=== PATIENT | female | born 1965 | race Caucasian/White ===

== ENCOUNTER 2024-11-12 21:02 | Inpatient (IN) | payer MEDICARE, SELFPAY ==
[2024-11-12 20:00] VITALS: BP 82/51; PULSE 78; RESP 20; TEMP 36.8; O2SAT 95
[2024-11-13] MEDS: hydrOXYzine HCL 25 MG TABLET PO (00:20)
[2024-11-13] MEDS: traZODone HCL 50 MG TABLET PO (00:20)
[2024-11-13] MEDS: OLANZapine 5 MG TABLET PO (00:20)
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
--- NOTE | 2024-11-13 07:14 | HE.PHANOTE ---
METHADONE CONFIRMATION FORM RECEIVED PATIENT TAKES 85MG FROM [facility]. LAST DOSE ON 11/12 @ 0010
[2024-11-13 08:00] VITALS: BP 104/54; PULSE 67; RESP 16; TEMP 36.9; O2SAT 97
--- NOTE | 2024-11-13 08:12 | PC.NURSE ---
This nurse verified methadone dose as 85mg [address] [facility], I spoke with [place] [facility]. Last dose received 11/08/24.
[2024-11-13 08:37] LABS: Estimated Average Glucose 91 mg/dL; Hemoglobin A1C 97.0887 umol/L; Hemoglobin A1c % 4.8 % (<6.0); Total Hemoglobin (HGBA1C) 3362.1232 umol/L
[2024-11-13 08:59] LABS: Cholesterol 155 mg/dL (<200); HDL Cholesterol 61 mg/dL (>40); LDL Cholesterol Calculated 63 mg/dL (<100); Triglycerides 157 mg/dL (<150)
[2024-11-13] MEDS: methADONE HCl 20 MG/2 ML ORAL.CONC 80 MG PO (10:15)
[2024-11-13] MEDS: Gabapentin 400 MG CAPSULE 800 MG PO ×4 (10:17→21:35)
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
[2024-11-13 14:42] LABS: Anion Gap 14 (12-20); Blood Urea Nitrogen 16 mg/dL (9-16); Calcium 8.6 mg/dL (8.4-10.2); Carbon Dioxide 20 mmol/L (22-29); Chloride 108 mmol/L (96-108); Estimated Glomerular Filt Rate > 60; Glucose Random 78 mg/dL (60-115); Potassium 3.9 mmol/L (3.3-5.1); Sodium 138 mmol/L (135-145)
[2024-11-13] MEDS: Cyclobenzaprine HCl 10 MG TABLET PO ×2 (14:50→17:12)
[2024-11-13] MEDS: Flu Vacc TS2024-25(6mos up)/PF 0.5 ML SYRINGE IM (14:54)
--- NOTE | 2024-11-13 16:38 | PC.NURSE ---
late entry 1200 patient's roommate sought staff as Hannah fell from bed to floor. Hannah is alert, annoyed that so many staff responded for the fall. She reported I slid off the bed onto my butt , denies any head strike. Encouraged to use walker regularly. Vitals 97.3, 88,18 Sat 98% BP 93/59
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
[2024-11-13 20:00] VITALS: BP 95/60; PULSE 84; TEMP 36.9; O2SAT 98
[2024-11-13] MEDS: QUEtiapine Fumarate 400 MG TABLET PO (21:35)
[2024-11-13] MEDS: OLANZapine 10 MG TABLET PO (21:35)
[2024-11-13 21:36] VITALS: BP 95/60
[2024-11-13] MEDS: cloNIDine HCL 0.1 MG TABLET PO (21:36)
[2024-11-14] MEDS: methADONE HCl 20 MG/2 ML ORAL.CONC 85 MG PO (07:55)
[2024-11-14 08:00] VITALS: BP 98/53; PULSE 66; RESP 20; TEMP 36.4; O2SAT 96
[2024-11-14] MEDS: Gabapentin 400 MG CAPSULE 800 MG PO ×4 (08:15→21:12)
--- NOTE | 2024-11-14 14:36 | P.PNPSI_ITS ---
Subjective Subjective Date of Service: 11/14/24 Reason For Visit: Bipolar Interim History: Laying in bed. guarded. reports feeling depressed d/t life in general . Pt reports sleeping well last night. denies SI/HI/VH/AH. Kept 1:1 brief; states she doesn't need anything and just wants to sleep . Medication Compliance: Yes Side effects from medications: No Mental Status Exam Mental Status Exam Patient Appearance: Disheveled Patient Orientation: Person, Place, Time and Situation Level of Consciousness: Drowsy Patient Behavior: Guarded and Poor Eye Contact Mood Description: Depressed Affect Description: Flat Ability to Follow Directions: Good Speech Pattern: Clear Memory Description: Intact Hallucinations: None Delusions: Not Present Thought Process: Intact Thought Content: positive for Intact Diagnostics Vital Signs (24Hr): Vital Signs - 24 hr 11/13/24 20:00 11/13/24 21:36 11/14/24 08:00 Temperature 98.4 F 97.6 F Pulse Rate 84 66 Respiratory Rate 20 Blood Pressure 95/60 95/60 98/53 L Pulse Oximetry 98 96 Oxygen Delivery Method Room Air Room Air Labs 11/13/24 08:06 Labs: Laboratory Results - last 48 hr 11/13/24 08:06 Sodium 138 Potassium 3.9 Chloride 108 Carbon Dioxide 20 L Anion Gap 14 BUN 16 Creatinine 0.94 Estim Creat Clear Calc TNP Estimated GFR > 60 Random Glucose 78 Estimat Average Glucose 91 Hemoglobin A1c % 4.8 Calcium 8.6 Triglycerides 157 H Cholesterol 155 LDL Cholesterol, Calc 63 HDL Cholesterol 61 TSH 3.30 Medications Medications Current Medications Acetaminophen (Acetaminophen 325 Mg Tablet) 650 mg PO Q6H PRN PRN Reason: Headache/Pain Mild Scale (1-3) Al Hydroxide/Mg Hydroxide (Magnesium Hydrox/Alum Hydrox 30 Ml Oral.Susp) 30 ml PO Q6H PRN PRN Reason: Heartburn/Nausea Clonidine HCl (Clonidine Hcl 0.1 Mg Tablet) 0.1 mg PO Q4H PRN; Protocol PRN Reason: mod anxiety Clonidine HCl (Clonidine Hcl 0.1 Mg Tablet) 0.1 mg PO BEDTIME [facility]INDA; Protocol Last Admin: 11/13/24 21:36 Dose: 0.1 mg Cyclobenzaprine HCl (Cyclobenzaprine Hcl 10 Mg Tablet) 10 mg PO TID PRN PRN Reason: Muscle Spasm Last Admin: 11/13/24 17:12 Dose: 10 mg Gabapentin (Gabapentin 400 Mg Capsule) 800 mg PO QID REPLACED BY [facility] Last Admin: 11/14/24 13:06 Dose: 800 mg Hydroxyzine HCl (Hydroxyzine Hcl 25 Mg Tablet) 25 mg PO Q6H PRN PRN Reason: Anxiety Last Admin: 11/13/24 00:20 Dose: 25 mg Magnesium Hydroxide (Milk Of Magnesia 30 Ml Oral.Susp) 30 ml PO DAILY PRN PRN Reason: Constipation Methadone HCl (Methadone Hcl 20 Mg/2 Ml Oral.Conc) 85 mg PO DAILY@0800 REPLACED BY [facility] Last Admin: 11/14/24 07:55 Dose: 85 mg Naloxone HCl (Naloxone Hcl Nasal 4 Mg [place]) 4 mg NOSTRILALT ONCE PRN PRN Reason: opiate od Nicotine Polacrilex (Nicotine Polacrilex 2 Mg Gum) 4 mg BUCCAL Q2H PRN PRN Reason: Nicotine Cravings Olanzapine (Olanzapine 5 Mg Tablet) 5 mg PO TID PRN PRN Reason: agitation Last Admin: 11/13/24 00:20 Dose: 5 mg Olanzapine (Olanzapine 10 Mg Tablet) 10 mg PO BEDTIME REPLACED BY [facility] Last Admin: 11/13/24 21:35 Dose: 10 mg Quetiapine Fumarate (Quetiapine Fumarate 400 Mg Tablet) 400 mg PO BEDTIME REPLACED BY [facility] Last Admin: 11/13/24 21:35 Dose: 400 mg Quetiapine Fumarate (Quetiapine Fumarate 50 Mg Tablet) 50 mg PO TID PRN PRN Reason: anxiety, agitation Trazodone HCl (Trazodone Hcl 50 Mg Tablet) 50 mg PO BEDTIME MRX1 PRN PRN Reason: Insomnia Last Admin: 11/13/24 00:20 Dose: 50 mg Allergies Allergies Allergy/AdvReac Type Severity Reaction Status Date / Time codeine Allergy unknown Verified 11/12/24 16:59 Assessment & Plan Assessment & Plan (1) Opioid use disorder: Status: Acute Code(s): F11.90 - Opioid use, unspecified, uncomplicated (2) Bipolar disorder: Status: Acute Code(s): F31.9 - Bipolar disorder, unspecified (3) Polysubstance use disorder: Status: Acute Code(s): F19.90 - Other psychoactive substance use, unspecified, uncomplicated Plan Bipolar Disorder, Polysubstance Use Disorder, Opiate Use Disorder. Hx of C-1, C- 2 spinal injury. Plan: Admit, Section XII, 15 minute checks Diagnostics as needed Collateral Contact Re-establish medicine regime Encourage full milieu Discharge planning 11/14: Laying in bed. guarded. reports feeling depressed d/t life in general . Pt reports sleeping well last night. denies SI/HI/VH/AH. Kept 1:1 brief; states she doesn't need anything and just wants to sleep . continue current tx plan. Patient educated on: diagnosis and medication risk/benefits Reason for continued inpatient stay Substantial Risk for: med/psych decompensation Time Spent With Patient Time: Total time managing care of this patient today _20___ minutes.
[2024-11-14 20:00] VITALS: BP 82/56; PULSE 82; TEMP 36.6; O2SAT 98
[2024-11-14] MEDS: OLANZapine 10 MG TABLET PO (21:12)
[2024-11-14 21:13] VITALS: BP 111/56
[2024-11-14] MEDS: cloNIDine HCL 0.1 MG TABLET PO (21:13)
[2024-11-14 21:20] VITALS: BP 111/56; PULSE 77; TEMP 36.9
[2024-11-14] MEDS: Acetaminophen 325 MG TABLET 650 MG PO (21:23)
[2024-11-14] MEDS: QUEtiapine Fumarate 400 MG TABLET PO (21:25)
[2024-11-15 08:00] VITALS: BP 88/52; PULSE 69; RESP 16; TEMP 36.4; O2SAT 96
[2024-11-15] MEDS: methADONE HCl 20 MG/2 ML ORAL.CONC 85 MG PO (08:01)
[2024-11-15] MEDS: Gabapentin 400 MG CAPSULE 800 MG PO ×4 (09:08→21:02)
[2024-11-15] MEDS: QUEtiapine Fumarate 50 MG TABLET PO (09:09)
[2024-11-15] MEDS: Cyclobenzaprine HCl 10 MG TABLET PO ×2 (09:09→14:55)
[2024-11-15] MEDS: Acetaminophen 325 MG TABLET 650 MG PO ×2 (09:09→15:00)
--- NOTE | 2024-11-15 09:54 | P.PNPSI_ITS ---
Subjective Subjective Date of Service: 11/15/24 Reason For Visit: Bipolar Interim History: met with patient; discussed with team; reviewed chart -Patient reports that she is feeling better than when she came in. Still depressed and would like to get on a medication that could help with depression; discussed options, risks/side effects and patient agreed to try Wellbutrin -discussed history of bipolar diagnosis however marketing underwriter can not solicit actual criteria to meet this diagnosis and it seems that patient just has flare upset only last hours or 1 or 2 days day at most; chronic history of consistent cocaine addiction making it difficult to further assess. -signed cv Mental Status Exam Mental Status Exam Narrative: Pt is alert and oriented; behavior is cooperative, calm, mostly keeping to herself; patient is not in distress; cachectic; dressed in casual attire, unkempt; mood is described as okay and affect congruent; eye contact appropriate; Speech is a little soft, a little slowed; some psychomotor retardation present; thought process is organized and goal directed; Thought content is on tx; otherwise pertinent to relevant topics and without any delusional content, paranoid ideations or grandiosity; denies any SI/HI. There is no evidence of perceptual disturbance. Patients insight and judgment impaired but improved and possibly close to baseline Diagnostics Vital Signs (24Hr): Vital Signs - 24 hr 11/14/24 20:00 11/14/24 21:13 11/14/24 21:20 Temperature 97.8 F 98.5 F Pulse Rate 82 77 Respiratory Rate Blood Pressure 82/56 L 111/56 L 111/56 L Pulse Oximetry 98 Oxygen Delivery Method Room Air 11/15/24 08:00 Temperature 97.5 F Pulse Rate 69 Respiratory Rate 16 Blood Pressure 88/52 L Pulse Oximetry 96 Oxygen Delivery Method Room Air Labs 11/13/24 08:06 Labs: Laboratory Results - last 48 hr 11/13/24 08:06 Sodium 138 Potassium 3.9 Chloride 108 Carbon Dioxide 20 L Anion Gap 14 BUN 16 Creatinine 0.94 Estim Creat Clear Calc TNP Estimated GFR > 60 Random Glucose 78 Calcium 8.6 Medications Medications Current Medications Acetaminophen (Acetaminophen 325 Mg Tablet) 650 mg PO Q6H PRN PRN Reason: Headache/Pain Mild Scale (1-3) Last Admin: 11/15/24 09:09 Dose: 650 mg Al Hydroxide/Mg Hydroxide (Magnesium Hydrox/Alum Hydrox 30 Ml Oral.Susp) 30 ml PO Q6H PRN PRN Reason: Heartburn/Nausea Clonidine HCl (Clonidine Hcl 0.1 Mg Tablet) 0.1 mg PO Q4H PRN; Protocol PRN Reason: mod anxiety Clonidine HCl (Clonidine Hcl 0.1 Mg Tablet) 0.1 mg PO BEDTIME [facility]; Protocol Last Admin: 11/14/24 21:13 Dose: 0.1 mg Cyclobenzaprine HCl (Cyclobenzaprine Hcl 10 Mg Tablet) 10 mg PO TID PRN PRN Reason: Muscle Spasm Last Admin: 11/15/24 09:09 Dose: 10 mg Gabapentin (Gabapentin 400 Mg Capsule) 800 mg PO QID [facility] Last Admin: 11/15/24 09:08 Dose: 800 mg Hydroxyzine HCl (Hydroxyzine Hcl 25 Mg Tablet) 25 mg PO Q6H PRN PRN Reason: Anxiety Last Admin: 11/13/24 00:20 Dose: 25 mg Magnesium Hydroxide (Milk Of Magnesia 30 Ml Oral.Susp) 30 ml PO DAILY PRN PRN Reason: Constipation Methadone HCl (Methadone Hcl 20 Mg/2 Ml Oral.Conc) 85 mg PO DAILY@0800 [facility] Last Admin: 11/15/24 08:01 Dose: 85 mg Naloxone HCl (Naloxone Hcl Nasal 4 Mg [place]) 4 mg NOSTRILALT ONCE PRN PRN Reason: opiate od Nicotine Polacrilex (Nicotine Polacrilex 2 Mg Gum) 4 mg BUCCAL Q2H PRN PRN Reason: Nicotine Cravings Olanzapine (Olanzapine 5 Mg Tablet) 5 mg PO TID PRN PRN Reason: agitation Last Admin: 11/13/24 00:20 Dose: 5 mg Olanzapine (Olanzapine 10 Mg Tablet) 10 mg PO BEDTIME [facility] Last Admin: 11/14/24 21:12 Dose: 10 mg Quetiapine Fumarate (Quetiapine Fumarate 400 Mg Tablet) 400 mg PO BEDTIME [facility] Last Admin: 11/14/24 21:25 Dose: 200 mg Quetiapine Fumarate (Quetiapine Fumarate 50 Mg Tablet) 50 mg PO TID PRN PRN Reason: anxiety, agitation Last Admin: 11/15/24 09:09 Dose: 50 mg Trazodone HCl (Trazodone Hcl 50 Mg Tablet) 50 mg PO BEDTIME MRX1 PRN PRN Reason: Insomnia Last Admin: 11/13/24 00:20 Dose: 50 mg Allergies Allergies Allergy/AdvReac Type Severity Reaction Status Date / Time codeine Allergy unknown Verified 11/12/24 16:59 Assessment & Plan Assessment & Plan (1) Opioid use disorder: Status: Acute Code(s): F11.90 - Opioid use, unspecified, uncomplicated (2) Bipolar disorder: Status: Acute Code(s): F31.9 - Bipolar disorder, unspecified (3) Polysubstance use disorder: Status: Acute Code(s): F19.90 - Other psychoactive substance use, unspecified, uncomplicated Plan History of depression, chronic severe polysubstance abuse; carries a diagnosis of bipolar disorder;opiate Use Disorder. Hx of C-1, C-2 spinal injury. Hospital course 11/14: Laying in bed. guarded. reports feeling depressed d/t life in general . Pt reports sleeping well last night. denies SI/HI/VH/AH. Kept 1:1 brief; states she doesn't need anything and just wants to sleep . continue current tx plan. 11/15 -Patient reports that she is feeling better than when she came in. Still depressed and would like to get on a medication that could help with depression; discussed options, risks/side effects and patient agreed to try Wellbutrin -discussed history of bipolar diagnosis however marketing underwriter can not solicit actual criteria to meet this diagnosis and it seems that patient just has flare upset only last hours or 1 or 2 days day at most; chronic history of consistent cocaine addiction making it difficult to further assess. -discussed behavioral activation and getting out of her room more, participate in the milieu to which she agreed -signed cv Plan: CV Start Wellbutrin XL 150 mg Collateral Contact Re-establish medicine regime Encourage full milieu Discharge planning Patient educated on: diagnosis, medication risk/benefits and therapeutic strategies Informed Consent: understands Reason for continued inpatient stay Substantial Risk for: rapid decompensation Time Spent With Patient Time: Total time managing care of this patient today ____ minutes.
[2024-11-15] MEDS: buPROPion HCl XL 150 MG TAB.ER.24H PO (15:02)
[2024-11-15 19:55] VITALS: BP 108/56; PULSE 65; TEMP 36.7; O2SAT 98
[2024-11-15 21:01] VITALS: BP 108/56
[2024-11-15] MEDS: QUEtiapine Fumarate 400 MG TABLET PO (21:01)
[2024-11-15] MEDS: cloNIDine HCL 0.1 MG TABLET PO (21:01)
[2024-11-15] MEDS: OLANZapine 10 MG TABLET PO (21:02)
[2024-11-16 08:00] VITALS: BP 98/54; PULSE 75; RESP 16; TEMP 36.7; O2SAT 99
--- NOTE | 2024-11-16 08:15 | HO.PSYCHPN ---
Subjective Subjective Date of Service: 11/16/24 Reason For Visit: Bipolar Interim History: met with patient; discussed with team; reviewed chart . Seen in room. Eating lunch. Noticeable bruising from falls. Reports that she still feels depressed, and intermittent hopelessness and thoughts of . No active SI. No side effect from Wellbutrin. No psychosis. Medication Compliance: Yes Side effects from medications: No Attending Groups: Intermittent Review of Systems Acute medical concerns: No Review of Systems Review of Systems Gait Disturbance, uses a walker. Mental Status Exam Mental Status Exam Narrative: Pt is alert and oriented; In room, eating lunch, behavior is cooperative, calm, mostly keeping to herself; patient is not in distress; cachectic; dressed in casual attire, unkempt; mood is described as okay and affect congruent; eye contact appropriate; Speech is a little soft, a little slowed; some psychomotor retardation present; thought process is organized and goal directed; Thought content is on tx; otherwise pertinent to relevant topics and without any delusional content, paranoid ideations or grandiosity; denies any SI/HI , but does endorse passive thoughts of . There is no evidence of perceptual disturbance. Patients insight and judgment impaired but improved and possibly close to baseline Diagnostics Vital Signs (24Hr): Vital Signs - 24 hr 11/15/24 19:55 11/15/24 21:01 Temperature 98.0 F Pulse Rate 65 Blood Pressure 108/56 L 108/56 L Pulse Oximetry 98 Oxygen Delivery Method Room Air Labs 11/13/24 08:06 Medications Medications Current Medications Acetaminophen (Acetaminophen 325 Mg Tablet) 650 mg PO Q6H PRN PRN Reason: Headache/Pain Mild Scale (1-3) Last Admin: 11/15/24 15:00 Dose: 650 mg Al Hydroxide/Mg Hydroxide (Magnesium Hydrox/Alum Hydrox 30 Ml Oral.Susp) 30 ml PO Q6H PRN PRN Reason: Heartburn/Nausea Bupropion HCl (Bupropion Hcl Xl 150 Mg Tab.Er.24h) 150 mg PO DAILY [facility]IN[facility] Last Admin: 11/15/24 15:02 Dose: 150 mg Clonidine HCl (Clonidine Hcl 0.1 Mg Tablet) 0.1 mg PO Q4H PRN; Protocol PRN Reason: mod anxiety Clonidine HCl (Clonidine Hcl 0.1 Mg Tablet) 0.1 mg PO BEDTIME [facility]; Protocol Last Admin: 11/15/24 21:01 Dose: 0.1 mg Cyclobenzaprine HCl (Cyclobenzaprine Hcl 10 Mg Tablet) 10 mg PO TID PRN PRN Reason: Muscle Spasm Last Admin: 11/15/24 14:55 Dose: 10 mg Gabapentin (Gabapentin 400 Mg Capsule) 800 mg PO QID [facility] Last Admin: 11/15/24 21:02 Dose: 800 mg Hydroxyzine HCl (Hydroxyzine Hcl 25 Mg Tablet) 25 mg PO Q6H PRN PRN Reason: Anxiety Last Admin: 11/13/24 00:20 Dose: 25 mg Magnesium Hydroxide (Milk Of Magnesia 30 Ml Oral.Susp) 30 ml PO DAILY PRN PRN Reason: Constipation Methadone HCl (Methadone Hcl 20 Mg/2 Ml Oral.Conc) 85 mg PO DAILY@0800 [facility] Last Admin: 11/15/24 08:01 Dose: 85 mg Naloxone HCl (Naloxone Hcl Nasal 4 Mg [place]) 4 mg NOSTRILALT ONCE PRN PRN Reason: opiate od Nicotine Polacrilex (Nicotine Polacrilex 2 Mg Gum) 4 mg BUCCAL Q2H PRN PRN Reason: Nicotine Cravings Olanzapine (Olanzapine 5 Mg Tablet) 5 mg PO TID PRN PRN Reason: agitation Last Admin: 11/13/24 00:20 Dose: 5 mg Olanzapine (Olanzapine 10 Mg Tablet) 10 mg PO BEDTIME [facility] Last Admin: 11/15/24 21:02 Dose: 10 mg Quetiapine Fumarate (Quetiapine Fumarate 400 Mg Tablet) 400 mg PO BEDTIME [facility] Last Admin: 11/15/24 21:01 Dose: 400 mg Quetiapine Fumarate (Quetiapine Fumarate 50 Mg Tablet) 50 mg PO TID PRN PRN Reason: anxiety, agitation Last Admin: 11/15/24 09:09 Dose: 50 mg Trazodone HCl (Trazodone Hcl 50 Mg Tablet) 50 mg PO BEDTIME MRX1 PRN PRN Reason: Insomnia Last Admin: 11/13/24 00:20 Dose: 50 mg Allergies Allergies Allergy/AdvReac Type Severity Reaction Status Date / Time codeine Allergy unknown Verified 11/12/24 16:59 Assessment & Plan Assessment & Plan (1) Opioid use disorder: Status: Acute Code(s): F11.90 - Opioid use, unspecified, uncomplicated (2) Bipolar disorder: Status: Acute Code(s): F31.9 - Bipolar disorder, unspecified (3) Polysubstance use disorder: Status: Acute Code(s): F19.90 - Other psychoactive substance use, unspecified, uncomplicated Plan History of depression, chronic severe polysubstance abuse; carries a diagnosis of bipolar disorder;opiate Use Disorder. Hx of C-1, C-2 spinal injury. Hospital course 11/14: Laying in bed. guarded. reports feeling depressed d/t life in general . Pt reports sleeping well last night. denies SI/HI/VH/AH. Kept 1:1 brief; states she doesn't need anything and just wants to sleep . continue current tx plan. 11/15 -Patient reports that she is feeling better than when she came in. Still depressed and would like to get on a medication that could help with depression; discussed options, risks/side effects and patient agreed to try Wellbutrin -discussed history of bipolar diagnosis however contract technical writer can not solicit actual criteria to meet this diagnosis and it seems that patient just has flare upset only last hours or 1 or 2 days day at most; chronic history of consistent cocaine addiction making it difficult to further assess. -discussed behavioral activation and getting out of her room more, participate in the milieu to which she agreed -signed cv 11/16: no changes Plan: CV Start Wellbutrin XL 150 mg Collateral Contact Re-establish medicine regime Encourage full milieu Discharge planning Reason for continued inpatient stay Substantial Risk for: inability to function and rapid decompensation Time Spent With Patient Time: Total time managing care of this patient today ____ minutes.
[2024-11-16] MEDS: methADONE HCl 20 MG/2 ML ORAL.CONC 85 MG PO (08:16)
[2024-11-16] MEDS: Gabapentin 400 MG CAPSULE 800 MG PO ×4 (08:17→20:12)
[2024-11-16] MEDS: buPROPion HCl XL 150 MG TAB.ER.24H PO (08:17)
[2024-11-16 19:31] VITALS: BP 138/65; PULSE 96; TEMP 36.9; O2SAT 98
[2024-11-16] MEDS: traZODone HCL 50 MG TABLET PO (20:12)
[2024-11-16] MEDS: QUEtiapine Fumarate 400 MG TABLET PO (20:12)
[2024-11-16] MEDS: Cyclobenzaprine HCl 10 MG TABLET PO (20:12)
[2024-11-16] MEDS: cloNIDine HCL 0.1 MG TABLET PO (20:13)
[2024-11-16] MEDS: OLANZapine 10 MG TABLET PO (20:13)
[2024-11-16] MEDS: Acetaminophen 325 MG TABLET 650 MG PO (20:55)
[2024-11-17] MEDS: methADONE HCl 20 MG/2 ML ORAL.CONC 85 MG PO (07:52)
[2024-11-17 08:00] VITALS: BP 110/52; PULSE 71; RESP 16; TEMP 36.4; O2SAT 98
[2024-11-17] MEDS: Gabapentin 400 MG CAPSULE 800 MG PO ×4 (08:42→21:18)
[2024-11-17] MEDS: buPROPion HCl XL 150 MG TAB.ER.24H PO (08:42)
--- NOTE | 2024-11-17 11:21 | P.PNPSI_ITS ---
Subjective Subjective Date of Service: 11/17/24 Reason For Visit: Bipolar Subjective Notes: Section 12B Interim History: met with patient; discussed with team. Overall patient reports no significant changes I still depressed with intermittent hopelessness and thoughts of . Did note that she pulled her hair last night and to get a chunk. Did not report this was a form of self-harm. Reports she has not done that before. Did not feel agitated or more anxious. Overall will continue to monitor this along with recent med changes and make adjustments if needed. Otherwise, no active SI. No psychosis. Medication Compliance: Yes Side effects from medications: No Attending Groups: No Review of Systems Acute medical concerns: No Review of Systems Review of Systems nothing acute or new Mental Status Exam Mental Status Exam Narrative: Pt is alert and oriented; In room, behavior is cooperative, calm, mostly keeping to herself; patient is not in distress; cachectic; dressed in casual attire, unkempt; mood is described as okay still down and affect congruent; eye contact appropriate; Speech is a little soft, a little slowed; some psychomotor retardation present; thought process is organized and goal directed; Thought content is on tx; otherwise pertinent to relevant topics and without any delusional content, paranoid ideations or grandiosity; denies any SI/HI , but does endorse passive thoughts of . There is no evidence of perceptual disturbance. Patients insight and judgment impaired but improved and possibly close to baseline Diagnostics Vital Signs (24Hr): Vital Signs - 24 hr 11/16/24 19:31 11/17/24 08:00 Temperature 98.4 F 97.5 F Pulse Rate 96 71 Respiratory Rate 16 Blood Pressure 138/65 110/52 L Pulse Oximetry 98 98 Oxygen Delivery Method Room Air Room Air Labs 11/13/24 08:06 Medications Medications Current Medications Acetaminophen (Acetaminophen 325 Mg Tablet) 650 mg PO Q6H PRN PRN Reason: Headache/Pain Mild Scale (1-3) Last Admin: 11/16/24 20:55 Dose: 650 mg Al Hydroxide/Mg Hydroxide (Magnesium Hydrox/Alum Hydrox 30 Ml Oral.Susp) 30 ml PO Q6H PRN PRN Reason: Heartburn/Nausea Bupropion HCl (Bupropion Hcl Xl 150 Mg Tab.Er.24h) 150 mg PO DAILY [facility]INDA Last Admin: 11/17/24 08:42 Dose: 150 mg Clonidine HCl (Clonidine Hcl 0.1 Mg Tablet) 0.1 mg PO Q4H PRN; Protocol PRN Reason: mod anxiety Clonidine HCl (Clonidine Hcl 0.1 Mg Tablet) 0.1 mg PO BEDTIME [facility]; Protocol Last Admin: 11/16/24 20:13 Dose: 0.1 mg Cyclobenzaprine HCl (Cyclobenzaprine Hcl 10 Mg Tablet) 10 mg PO TID PRN PRN Reason: Muscle Spasm Last Admin: 11/16/24 20:12 Dose: 10 mg Gabapentin (Gabapentin 400 Mg Capsule) 800 mg PO QID [facility] Last Admin: 11/17/24 08:42 Dose: 800 mg Hydroxyzine HCl (Hydroxyzine Hcl 25 Mg Tablet) 25 mg PO Q6H PRN PRN Reason: Anxiety Last Admin: 11/13/24 00:20 Dose: 25 mg Magnesium Hydroxide (Milk Of Magnesia 30 Ml Oral.Susp) 30 ml PO DAILY PRN PRN Reason: Constipation Methadone HCl (Methadone Hcl 20 Mg/2 Ml Oral.Conc) 85 mg PO DAILY@0800 [facility] Last Admin: 11/17/24 07:52 Dose: 85 mg Naloxone HCl (Naloxone Hcl Nasal 4 Mg [place]) 4 mg NOSTRILALT ONCE PRN PRN Reason: opiate od Nicotine Polacrilex (Nicotine Polacrilex 2 Mg Gum) 4 mg BUCCAL Q2H PRN PRN Reason: Nicotine Cravings Olanzapine (Olanzapine 5 Mg Tablet) 5 mg PO TID PRN PRN Reason: agitation Last Admin: 11/13/24 00:20 Dose: 5 mg Olanzapine (Olanzapine 10 Mg Tablet) 10 mg PO BEDTIME [facility] Last Admin: 11/16/24 20:13 Dose: 10 mg Quetiapine Fumarate (Quetiapine Fumarate 400 Mg Tablet) 400 mg PO BEDTIME [facility] Last Admin: 11/16/24 20:12 Dose: 400 mg Quetiapine Fumarate (Quetiapine Fumarate 50 Mg Tablet) 50 mg PO TID PRN PRN Reason: anxiety, agitation Last Admin: 11/15/24 09:09 Dose: 50 mg Trazodone HCl (Trazodone Hcl 50 Mg Tablet) 50 mg PO BEDTIME MRX1 PRN PRN Reason: Insomnia Last Admin: 11/16/24 20:12 Dose: 50 mg Allergies Allergies Allergy/AdvReac Type Severity Reaction Status Date / Time codeine Allergy unknown Verified 02/04/25 16:59 Assessment & Plan Assessment & Plan (1) Opioid use disorder: Status: Acute Code(s): F11.90 - Opioid use, unspecified, uncomplicated (2) Bipolar disorder: Status: Acute Code(s): F31.9 - Bipolar disorder, unspecified (3) Polysubstance use disorder: Status: Acute Code(s): F19.90 - Other psychoactive substance use, unspecified, uncomplicated Plan History of depression, chronic severe polysubstance abuse; carries a diagnosis of bipolar disorder;opiate Use Disorder. Hx of C-1, C-2 spinal injury. Hospital course 11/14: Laying in bed. guarded. reports feeling depressed d/t life in general . Pt reports sleeping well last night. denies SI/HI/VH/AH. Kept 1:1 brief; states she doesn't need anything and just wants to sleep . continue current tx plan. 11/15 -Patient reports that she is feeling better than when she came in. Still depressed and would like to get on a medication that could help with depression; discussed options, risks/side effects and patient agreed to try Wellbutrin -discussed history of bipolar diagnosis however junior underwriter can not solicit actual criteria to meet this diagnosis and it seems that patient just has flare upset only last hours or 1 or 2 days day at most; chronic history of consistent cocaine addiction making it difficult to further assess. -discussed behavioral activation and getting out of her room more, participate in the milieu to which she agreed -signed cv 11/17: no changes Plan: CV Start Wellbutrin XL 150 mg Collateral Contact Re-establish medicine regime Encourage full milieu Discharge planning Reason for continued inpatient stay Substantial Risk for: inability to function and rapid decompensation Time Spent With Patient Time: Total time managing care of this patient today ____ minutes.
[2024-11-17 17:56] VITALS: BP 114/66
[2024-11-17] MEDS: cloNIDine HCL 0.1 MG TABLET PO ×2 (17:56→21:09)
[2024-11-17 20:00] VITALS: BP 92/55; PULSE 86; TEMP 36.8; O2SAT 96
[2024-11-17] MEDS: Acetaminophen 325 MG TABLET 650 MG PO (20:35)
[2024-11-17 21:09] VITALS: BP 102/55
[2024-11-17 21:15] VITALS: BP 105/55; PULSE 73; TEMP 36.6; O2SAT 100
[2024-11-17] MEDS: OLANZapine 10 MG TABLET PO (21:18)
[2024-11-17] MEDS: QUEtiapine Fumarate 400 MG TABLET PO (21:19)
[2024-11-18 07:45] VITALS: BP 97/54; PULSE 61; RESP 16; TEMP 36.7; O2SAT 97
[2024-11-18] MEDS: methADONE HCl 20 MG/2 ML ORAL.CONC 85 MG PO (08:41)
[2024-11-18] MEDS: buPROPion HCl XL 150 MG TAB.ER.24H PO (08:44)
[2024-11-18] MEDS: Gabapentin 400 MG CAPSULE 800 MG PO ×4 (08:44→20:44)
--- NOTE | 2024-11-18 10:15 | HO.PSYCHPN ---
Subjective Subjective Date of Service: 11/18/24 Reason For Visit: Bipolar Interim History: Appears sedate, tired today. Denies SI,HI, AH,VH. Team reports over the weekend SI with plan to carbon monoxide herself. Not attending groups. Hair pulling over the weekend (pt an family report no hx of trichotillomania, however pt has poor tricep control since her accident and has a hard time brushing her hair and can become frustrated). Not feeling ready to discharge to [facility] discussed with HCP/Sister who believes pt would benefit from a brief admit for physical rehab. [facility] in [place] and was very productive. Pt has strong independence skills and urges. When she cannot do for herself she becomes more depressed. When she has the opportunity to work on skills and support this is energizing for her and by history has been quite helpful. Medication Compliance: Yes Side effects from medications: No Attending Groups: Intermittent Review of Systems Acute medical concerns: No Review of Systems Review of Systems tired, weakness today Mental Status Exam Mental Status Exam Patient Appearance: Fatigued Patient Orientation: Person, Place and Situation Level of Consciousness: Alert and Lethargic Patient Behavior: Talkative Mood Description: Depressed Affect Description: Flat Patient Cognition Impaired: Yes Ability to Follow Directions: Good Speech Pattern: Spontaneous Speech Memory Description: Episodic Impaired Hallucinations: None Delusions: Not Present Thought Process: Goal Oriented Thought Content: positive for [place], positive for Circumstantial and positive for Goal Oriented Judgement: Fair Diagnostics Vital Signs (24Hr): Vital Signs - 24 hr 11/17/24 17:56 11/17/24 20:00 11/17/24 21:09 Temperature 98.3 F Pulse Rate 86 Respiratory Rate Blood Pressure 114/66 92/55 L 102/55 L Pulse Oximetry 96 Oxygen Delivery Method Room Air 11/17/24 21:15 11/18/24 07:45 Temperature 97.8 F 98.1 F Pulse Rate 73 61 Respiratory Rate 16 Blood Pressure 105/55 L 97/54 L Pulse Oximetry 100 97 Oxygen Delivery Method Room Air Room Air Labs 11/13/24 08:06 Medications Medications Current Medications Acetaminophen (Acetaminophen 325 Mg Tablet) 650 mg PO Q6H PRN PRN Reason: Headache/Pain Mild Scale (1-3) Last Admin: 11/17/24 20:35 Dose: 650 mg Al Hydroxide/Mg Hydroxide (Magnesium Hydrox/Alum Hydrox 30 Ml Oral.Susp) 30 ml PO Q6H PRN PRN Reason: Heartburn/Nausea Bupropion HCl (Bupropion Hcl Xl 150 Mg Tab.Er.24h) 150 mg PO DAILY [facility] Last Admin: 11/18/24 08:44 Dose: 150 mg Clonidine HCl (Clonidine Hcl 0.1 Mg Tablet) 0.1 mg PO Q4H PRN; Protocol PRN Reason: mod anxiety Last Admin: 11/17/24 17:56 Dose: 0.1 mg Clonidine HCl (Clonidine Hcl 0.1 Mg Tablet) 0.1 mg PO BEDTIME [facility]; Protocol Last Admin: 11/17/24 21:09 Dose: 0.1 mg Cyclobenzaprine HCl (Cyclobenzaprine Hcl 10 Mg Tablet) 10 mg PO TID PRN PRN Reason: Muscle Spasm Last Admin: 11/16/24 20:12 Dose: 10 mg Gabapentin (Gabapentin 400 Mg Capsule) 800 mg PO QID [facility] Last Admin: 11/18/24 08:44 Dose: 800 mg Hydroxyzine HCl (Hydroxyzine Hcl 25 Mg Tablet) 25 mg PO Q6H PRN PRN Reason: Anxiety Last Admin: 11/13/24 00:20 Dose: 25 mg Magnesium Hydroxide (Milk Of Magnesia 30 Ml Oral.Susp) 30 ml PO DAILY PRN PRN Reason: Constipation Methadone HCl (Methadone Hcl 20 Mg/2 Ml Oral.Conc) 85 mg PO DAILY@0800 [facility] Last Admin: 11/18/24 08:41 Dose: 85 mg Naloxone HCl (Naloxone Hcl Nasal 4 Mg [place]) 4 mg NOSTRILALT ONCE PRN PRN Reason: opiate od Nicotine Polacrilex (Nicotine Polacrilex 2 Mg [place]) 4 mg BUCCAL Q2H PRN PRN Reason: Nicotine Cravings Olanzapine (Olanzapine 5 Mg Tablet) 5 mg PO TID PRN PRN Reason: agitation Last Admin: 11/13/24 00:20 Dose: 5 mg Olanzapine (Olanzapine 10 Mg Tablet) 10 mg PO BEDTIME [facility] Last Admin: 11/17/24 21:18 Dose: 10 mg Quetiapine Fumarate (Quetiapine Fumarate 400 Mg Tablet) 400 mg PO BEDTIME [facility] Last Admin: 11/17/24 21:19 Dose: 400 mg Quetiapine Fumarate (Quetiapine Fumarate 50 Mg Tablet) 50 mg PO TID PRN PRN Reason: anxiety, agitation Last Admin: 11/15/24 09:09 Dose: 50 mg Trazodone HCl (Trazodone Hcl 50 Mg Tablet) 50 mg PO BEDTIME MRX1 PRN PRN Reason: Insomnia Last Admin: 11/16/24 20:12 Dose: 50 mg Allergies Allergies Allergy/AdvReac Type Severity Reaction Status Date / Time codeine Allergy unknown Verified 11/12/24 16:59 Assessment & Plan Assessment & Plan (1) Opioid use disorder: Status: Acute Code(s): F11.90 - Opioid use, unspecified, uncomplicated (2) Bipolar disorder: Status: Acute Code(s): F31.9 - Bipolar disorder, unspecified (3) Polysubstance use disorder: Status: Acute Code(s): F19.90 - Other psychoactive substance use, unspecified, uncomplicated Plan History of depression, chronic severe polysubstance abuse; carries a diagnosis of bipolar disorder;opiate Use Disorder. Hx of C-1, C-2 spinal injury. Hospital course 11/14: Laying in bed. guarded. reports feeling depressed d/t life in general . Pt reports sleeping well last night. denies SI/HI/VH/AH. Kept 1:1 brief; states she doesn't need anything and just wants to sleep . continue current tx plan. 11/15 -Patient reports that she is feeling better than when she came in. Still depressed and would like to get on a medication that could help with depression; discussed options, risks/side effects and patient agreed to try Wellbutrin -discussed history of bipolar diagnosis however technical report writer can not solicit actual criteria to meet this diagnosis and it seems that patient just has flare upset only last hours or 1 or 2 days day at most; chronic history of consistent cocaine addiction making it difficult to further assess. -discussed behavioral activation and getting out of her room more, participate in the milieu to which she agreed -signed cv 11/17: no changes 11/18: Will discuss rehab possibiity with team Plan: CV Start Wellbutrin XL 150 mg Collateral Contact Re-establish medicine regime Encourage full milieu Discharge planning Reason for continued inpatient stay Substantial Risk for: med/psych decompensation Time Spent With Patient Time: Total time managing care of this patient today ____ minutes.
[2024-11-18 20:25] VITALS: BP 102/52; PULSE 72; TEMP 36.7; O2SAT 99
[2024-11-18 20:43] VITALS: BP 102/58
[2024-11-18] MEDS: cloNIDine HCL 0.1 MG TABLET PO (20:43)
[2024-11-18] MEDS: QUEtiapine Fumarate 400 MG TABLET PO (20:43)
[2024-11-18] MEDS: OLANZapine 10 MG TABLET PO (20:44)
[2024-11-18] MEDS: Nicotine Polacrilex 2 MG GUM 4 MG BUCCAL (20:59)
[2024-11-19] MEDS: methADONE HCl 20 MG/2 ML ORAL.CONC 85 MG PO (07:49)
[2024-11-19 08:00] VITALS: BP 110/60; PULSE 56; RESP 16; TEMP 37; O2SAT 100
[2024-11-19] MEDS: buPROPion HCl XL 150 MG TAB.ER.24H PO (08:35)
[2024-11-19] MEDS: Gabapentin 400 MG CAPSULE 800 MG PO ×3 (08:35→22:02)
--- NOTE | 2024-11-19 10:13 | P.PNPSI_ITS ---
Subjective Subjective Date of Service: 11/19/24 Reason For Visit: Bipolar Interim History: Pt resting in bed, reports physically not well, (constipation~5days she believes-dulcolax given). Talked today of the loss of her partner, states they are not a good match- using friends, I support him, get out needs met and I have nothing from the relationship . Reports depressive sx. Feeling weak, not strong enough for self care and asks for assist in getting back to her previous lof. Discussed referrals and encouraged to utilize milieu/groups/ambulation opportunities to improve strength. Medication Compliance: Yes Side effects from medications: No Review of Systems constipation Review of Systems Review of Systems constipation Mental Status Exam Mental Status Exam Patient Appearance: Fatigued and Disheveled Patient Orientation: Person, Place and Situation Level of Consciousness: Sedated Patient Behavior: Appropriate, Talkative, Cooperative, Passive, Anxious, Fearful, Fatigued, Distractible, Isolative and Good Eye Contact Mood Description: Depressed Affect Description: Flat Patient Cognition Impaired: Yes Ability to Follow Directions: Good Speech Pattern: Spontaneous Speech and Long Pauses Memory Description: Remote Impaired Hallucinations: None Delusions: Not Present Thought Process: Rumination and Slowed Thinking Thought Content: positive for [place], positive for Circumstantial, positive for Perseveration and positive for Suicidal Ideation (passive) Depressive Symptoms: Sleeping More Than Usual, Feelings of Worthlessness, Hopelessness, Unhappiness, Increased Fatigue, Thoughts of /Suicide (passive), Loss of Energy and Difficulty Concentrating Judgement: Fair Diagnostics Vital Signs (24Hr): Vital Signs - 24 hr 11/18/24 20:25 11/18/24 20:43 Temperature 98.1 F Pulse Rate 72 Blood Pressure 102/52 L 102/58 L Pulse Oximetry 99 Oxygen Delivery Method Room Air Labs 11/13/24 08:06 Medications Medications Current Medications Acetaminophen (Acetaminophen 325 Mg Tablet) 650 mg PO Q6H PRN PRN Reason: pain 1-10 Al Hydroxide/Mg Hydroxide (Magnesium Hydrox/Alum Hydrox 30 Ml Oral.Susp) 30 ml PO Q6H PRN PRN Reason: Heartburn/Nausea Bupropion HCl (Bupropion Hcl Xl 150 Mg Tab.Er.24h) 150 mg PO DAILY [facility] Last Admin: 11/19/24 08:35 Dose: 150 mg Clonidine HCl (Clonidine Hcl 0.1 Mg Tablet) 0.1 mg PO Q4H PRN; Protocol PRN Reason: mod anxiety Last Admin: 11/17/24 17:56 Dose: 0.1 mg Clonidine HCl (Clonidine Hcl 0.1 Mg Tablet) 0.1 mg PO BEDTIME [facility]; Protocol Last Admin: 11/18/24 20:43 Dose: 0.1 mg Cyclobenzaprine HCl (Cyclobenzaprine Hcl 10 Mg Tablet) 10 mg PO TID PRN PRN Reason: Muscle Spasm Last Admin: 11/16/24 20:12 Dose: 10 mg Gabapentin (Gabapentin 400 Mg Capsule) 800 mg PO QID [facility] Last Admin: 11/19/24 08:35 Dose: 800 mg Hydroxyzine HCl (Hydroxyzine Hcl 25 Mg Tablet) 25 mg PO Q6H PRN PRN Reason: Anxiety,mild Magnesium Hydroxide (Milk Of Magnesia 30 Ml Oral.Susp) 30 ml PO DAILY PRN PRN Reason: Constipation Methadone HCl (Methadone Hcl 20 Mg/2 Ml Oral.Conc) 85 mg PO DAILY@0800 COUNTS INCLUDE 234 BEDS AT THE [facility] Last Admin: 11/19/24 07:49 Dose: 85 mg Naloxone HCl (Naloxone Hcl Nasal 4 Mg [place]) 4 mg NOSTRILALT ONCE PRN PRN Reason: opiate od Nicotine Polacrilex (Nicotine Polacrilex 2 Mg Gum) 4 mg BUCCAL Q2H PRN PRN Reason: Nicotine Cravings Last Admin: 11/18/24 20:59 Dose: 4 mg Olanzapine (Olanzapine 5 Mg Tablet) 5 mg PO TID PRN PRN Reason: agitation Last Admin: 11/13/24 00:20 Dose: 5 mg Olanzapine (Olanzapine 10 Mg Tablet) 10 mg PO BEDTIME COUNTS INCLUDE 234 BEDS AT THE [facility] Last Admin: 11/18/24 20:44 Dose: 10 mg Quetiapine Fumarate (Quetiapine Fumarate 400 Mg Tablet) 400 mg PO BEDTIME COUNTS INCLUDE 234 BEDS AT THE [facility] Last Admin: 11/18/24 20:43 Dose: 400 mg Quetiapine Fumarate (Quetiapine Fumarate 50 Mg Tablet) 50 mg PO TID PRN PRN Reason: anxiety, agitation Last Admin: 11/15/24 09:09 Dose: 50 mg Trazodone HCl (Trazodone Hcl 50 Mg Tablet) 50 mg PO BEDTIME MRX1 PRN PRN Reason: Insomnia Last Admin: 11/16/24 20:12 Dose: 50 mg Allergies Allergies Allergy/AdvReac Type Severity Reaction Status Date / Time codeine Allergy unknown Verified 11/12/24 16:59 Assessment & Plan Assessment & Plan (1) Opioid use disorder: Status: Acute Code(s): F11.90 - Opioid use, unspecified, uncomplicated (2) Bipolar disorder: Status: Acute Code(s): F31.9 - Bipolar disorder, unspecified (3) Polysubstance use disorder: Status: Acute Code(s): F19.90 - Other psychoactive substance use, unspecified, uncomplicated Plan History of depression, chronic severe polysubstance abuse; carries a diagnosis of bipolar disorder;opiate Use Disorder. Hx of C-1, C-2 spinal injury. Hospital course 11/14: Laying in bed. guarded. reports feeling depressed d/t life in general . Pt reports sleeping well last night. denies SI/HI/VH/AH. Kept 1:1 brief; states she doesn't need anything and just wants to sleep . continue current tx plan. 11/15 -Patient reports that she is feeling better than when she came in. Still depressed and would like to get on a medication that could help with depression; discussed options, risks/side effects and patient agreed to try Wellbutrin -discussed history of bipolar diagnosis however display card writer can not solicit actual criteria to meet this diagnosis and it seems that patient just has flare upset only last hours or 1 or 2 days day at most; chronic history of consistent cocaine addiction making it difficult to further assess. -discussed behavioral activation and getting out of her room more, participate in the milieu to which she agreed -signed cv 11/17: no changes 11/19: Fatigue, constipation, dsyphoria, feeling weak, anergic. Team looking at rehab options to help pt regain strength Encouraged milieu, ambulation Dulcolax prn Plan: CV Start Wellbutrin XL 150 mg Collateral Contact Re-establish medicine regime Encourage full milieu Discharge planning Reason for continued inpatient stay Substantial Risk for: rapid decompensation Time Spent With Patient Time: Total time managing care of this patient today ____ minutes.
[2024-11-19] MEDS: bisacodyL 5 MG TABLET.DR 10 MG PO (13:48)
[2024-11-19] MEDS: hydrOXYzine HCL 25 MG TABLET PO (18:48)
[2024-11-19] MEDS: Acetaminophen 325 MG TABLET 650 MG PO (18:48)
[2024-11-19 20:00] VITALS: BP 104/70; PULSE 78; RESP 16; TEMP 36.6; O2SAT 96
[2024-11-19] MEDS: Docusate Sodium 100 MG CAPSULE PO (22:00)
[2024-11-19 22:01] VITALS: BP 104/70
[2024-11-19] MEDS: cloNIDine HCL 0.1 MG TABLET PO (22:01)
[2024-11-19] MEDS: Cyclobenzaprine HCl 10 MG TABLET PO (22:01)
[2024-11-19] MEDS: OLANZapine 10 MG TABLET PO (22:01)
[2024-11-19] MEDS: QUEtiapine Fumarate 400 MG TABLET PO (22:13)
[2024-11-20] MEDS: methADONE HCl 20 MG/2 ML ORAL.CONC 85 MG PO (08:00)
[2024-11-20] MEDS: Docusate Sodium 100 MG CAPSULE PO ×2 (08:43→21:25)
[2024-11-20] MEDS: polyethylene glycoL 3350 17 GM POWD.PACK PO (08:43)
[2024-11-20] MEDS: buPROPion HCl XL 150 MG TAB.ER.24H PO (08:43)
[2024-11-20] MEDS: Gabapentin 400 MG CAPSULE 800 MG PO ×4 (08:43→21:24)
[2024-11-20 10:45] VITALS: BP 91/50; PULSE 67; TEMP 36.9; O2SAT 96
--- NOTE | 2024-11-20 14:57 | HO.PSYCHPN ---
Subjective Subjective Date of Service: 11/20/24 Reason For Visit: Bipolar Subjective Notes: Conditional Voluntary Healthcare Proxy: No Guardianship: No Medical Problems Affecting Mental Status: No Interim History: Team reports twenty plus applications for rehab with poor response. Pt did well several weeks ago at [facility] and [facility] for ~6 days. Today, discouraged, states she is attempting to increase movement, attend groups. Identifies anxiety as an issue and asks that we review her meds with this sx in mind. Constipation resolved. Medication Compliance: Yes Side effects from medications: No Attending Groups: Intermittent Review of Systems Acute medical concerns: No Medical Review of Systems: unchanged Review of Systems Review of Systems Fatigue, weakness, lack of strength Mental Status Exam Mental Status Exam Patient Appearance: Fatigued Patient Orientation: Person, Place, Time and Situation Level of Consciousness: Alert Patient Behavior: Appropriate, Talkative, Cooperative, Passive, Anxious, Fearful, Fatigued, Distractible, Isolative and Good Eye Contact Mood Description: Depressed and Anxious Affect Description: Anxious Patient Cognition Impaired: Yes Ability to Follow Directions: Good Speech Pattern: Spontaneous Speech and Long Pauses Memory Description: Remote Impaired Hallucinations: None Delusions: Not Present Thought Process: Rumination and Slowed Thinking Thought Content: positive for [place], positive for Circumstantial, positive for Perseveration and positive for Suicidal Ideation (passive) Depressive Symptoms: Sleeping More Than Usual, Feelings of Worthlessness, Hopelessness (grief), Unhappiness, Increased Fatigue, Thoughts of /Suicide (passive), Loss of Energy and Difficulty Concentrating Judgement: Fair Diagnostics Vital Signs (24Hr): Vital Signs - 24 hr 11/19/24 20:00 11/19/24 22:01 11/20/24 10:45 Temperature 97.8 F 98.4 F Pulse Rate 78 67 Respiratory Rate 16 Blood Pressure 104/70 104/70 91/50 L Pulse Oximetry 96 96 Oxygen Delivery Method Room Air Room Air Labs 11/13/24 08:06 Medications Medications Current Medications Acetaminophen (Acetaminophen 325 Mg Tablet) 650 mg PO Q6H PRN PRN Reason: pain 1-10 Last Admin: 11/19/24 18:48 Dose: 650 mg Al Hydroxide/Mg Hydroxide (Magnesium Hydrox/Alum Hydrox 30 Ml Oral.Susp) 30 ml PO Q6H PRN PRN Reason: Heartburn/Nausea Bupropion HCl (Bupropion Hcl Xl 150 Mg Tab.Er.24h) 150 mg PO DAILY [facility] Last Admin: 11/20/24 08:43 Dose: 150 mg Clonidine HCl (Clonidine Hcl 0.1 Mg Tablet) 0.1 mg PO Q4H PRN; Protocol PRN Reason: mod anxiety Last Admin: 11/17/24 17:56 Dose: 0.1 mg Clonidine HCl (Clonidine Hcl 0.1 Mg Tablet) 0.1 mg PO BEDTIME [facility]; Protocol Last Admin: 11/19/24 22:01 Dose: 0.1 mg Cyclobenzaprine HCl (Cyclobenzaprine Hcl 10 Mg Tablet) 10 mg PO TID PRN PRN Reason: Muscle Spasm Last Admin: 11/19/24 22:01 Dose: 10 mg Docusate Sodium (Docusate Sodium 100 Mg Capsule) 100 mg PO BID [facility] Last Admin: 11/20/24 08:43 Dose: 100 mg Gabapentin (Gabapentin 400 Mg Capsule) 800 mg PO QID [facility] Last Admin: 11/20/24 12:40 Dose: 800 mg Hydroxyzine HCl (Hydroxyzine Hcl 25 Mg Tablet) 25 mg PO Q6H PRN PRN Reason: Anxiety,mild Last Admin: 11/19/24 18:48 Dose: 25 mg Magnesium Hydroxide (Milk Of Magnesia 30 Ml Oral.Susp) 30 ml PO DAILY PRN PRN Reason: Constipation Methadone HCl (Methadone Hcl 20 Mg/2 Ml Oral.Conc) 85 mg PO DAILY@0800 [facility] Last Admin: 11/20/24 08:00 Dose: 85 mg Naloxone HCl (Naloxone Hcl Nasal 4 Mg [place]) 4 mg NOSTRILALT ONCE PRN PRN Reason: opiate od Nicotine Polacrilex (Nicotine Polacrilex 2 Mg Gum) 4 mg BUCCAL Q2H PRN PRN Reason: Nicotine Cravings Last Admin: 11/18/24 20:59 Dose: 4 mg Olanzapine (Olanzapine 5 Mg Tablet) 5 mg PO TID PRN PRN Reason: agitation Last Admin: 11/13/24 00:20 Dose: 5 mg Olanzapine (Olanzapine 10 Mg Tablet) 10 mg PO BEDTIME [facility] Last Admin: 11/19/24 22:01 Dose: 10 mg Polyethylene Glycol (Polyethylene Glycol 3350 17 Gm Powd.Pack) 17 gm PO DAILY [facility] Last Admin: 11/20/24 08:43 Dose: 17 gm Quetiapine Fumarate (Quetiapine Fumarate 400 Mg Tablet) 400 mg PO BEDTIME [facility] Last Admin: 11/19/24 22:13 Dose: 400 mg Quetiapine Fumarate (Quetiapine Fumarate 50 Mg Tablet) 50 mg PO TID PRN PRN Reason: anxiety, agitation Last Admin: 11/15/24 09:09 Dose: 50 mg Trazodone HCl (Trazodone Hcl 50 Mg Tablet) 50 mg PO BEDTIME MRX1 PRN PRN Reason: Insomnia Last Admin: 11/16/24 20:12 Dose: 50 mg Allergies Allergies Allergy/AdvReac Type Severity Reaction Status Date / Time codeine Allergy unknown Verified 11/12/24 16:59 Assessment & Plan Assessment & Plan (1) Opioid use disorder: Status: Acute Code(s): F11.90 - Opioid use, unspecified, uncomplicated (2) Bipolar disorder: Status: Acute Code(s): F31.9 - Bipolar disorder, unspecified (3) Polysubstance use disorder: Status: Acute Code(s): F19.90 - Other psychoactive substance use, unspecified, uncomplicated Plan History of depression, chronic severe polysubstance abuse; carries a diagnosis of bipolar disorder;opiate Use Disorder. Hx of C-1, C-2 spinal injury. Hospital course 11/14: Laying in bed. guarded. reports feeling depressed d/t life in general . Pt reports sleeping well last night. denies SI/HI/VH/AH. Kept 1:1 brief; states she doesn't need anything and just wants to sleep . continue current tx plan. 11/15 -Patient reports that she is feeling better than when she came in. Still depressed and would like to get on a medication that could help with depression; discussed options, risks/side effects and patient agreed to try Wellbutrin -discussed history of bipolar diagnosis however music writer can not solicit actual criteria to meet this diagnosis and it seems that patient just has flare upset only last hours or 1 or 2 days day at most; chronic history of consistent cocaine addiction making it difficult to further assess. -discussed behavioral activation and getting out of her room more, participate in the milieu to which she agreed -signed cv 11/17: no changes 11/19: Fatigue, constipation, dsyphoria, feeling weak, anergic. Team looking at rehab options to help pt regain strength Encouraged milieu, ambulation Dulcolax prn 11/20: Depakote, 125 mg bid. Target sx-anxiety Plan: CV Start Wellbutrin XL 150 mg Collateral Contact Re-establish medicine regime Encourage full milieu Discharge planning Reason for continued inpatient stay Substantial Risk for: rapid decompensation and med/psych decompensation Time Spent With Patient Time: Total time managing care of this patient today ____ minutes.
[2024-11-20] MEDS: Cyclobenzaprine HCl 10 MG TABLET PO ×2 (15:31→21:24)
[2024-11-20] MEDS: QUEtiapine Fumarate 50 MG TABLET PO (15:32)
[2024-11-20 19:48] VITALS: BP 117/62; PULSE 77; RESP 18; TEMP 36.8; O2SAT 99
[2024-11-20] MEDS: hydrOXYzine HCL 25 MG TABLET PO (21:23)
[2024-11-20] MEDS: QUEtiapine Fumarate 400 MG TABLET PO (21:24)
[2024-11-20] MEDS: cloNIDine HCL 0.1 MG TABLET PO (21:24)
[2024-11-20] MEDS: OLANZapine 10 MG TABLET PO (21:25)
[2024-11-20] MEDS: traZODone HCL 50 MG TABLET PO (21:25)
[2024-11-20] MEDS: Divalproex Sodium Sprinkles 125 MG CAP.DR.SPR PO (21:26)
[2024-11-21] MEDS: methADONE HCl 20 MG/2 ML ORAL.CONC 85 MG PO (08:27)
[2024-11-21 08:35] VITALS: BP 85/49; PULSE 70; TEMP 35.5; O2SAT 97
[2024-11-21] MEDS: Gabapentin 400 MG CAPSULE 800 MG PO ×4 (09:28→20:42)
[2024-11-21] MEDS: buPROPion HCl XL 150 MG TAB.ER.24H PO (09:29)
[2024-11-21] MEDS: Divalproex Sodium Sprinkles 125 MG CAP.DR.SPR PO ×2 (09:29→20:41)
[2024-11-21] MEDS: Docusate Sodium 100 MG CAPSULE PO ×2 (09:29→20:42)
[2024-11-21] MEDS: polyethylene glycoL 3350 17 GM POWD.PACK PO (09:29)
--- NOTE | 2024-11-21 11:42 | HO.PSYCHPN ---
Subjective Subjective Date of Service: 11/21/24 Reason For Visit: Bipolar Subjective Notes: Conditional Voluntary Healthcare Proxy: No Guardianship: No Medical Problems Affecting Mental Status: No Interim History: A difficult day. Pt, in talking with her residential care facility manager, Vijaya was reflecting upon her relationship with BF of 22 years, Escobar, and taking care of him. Discussed feeling guilty that she will no longer be able to support him. I am just leaving him high and dry. Discussed her anger with needing to do this to care for herself. I might just go to [employer] and buy a pipe to carbon monoxide myself. Medication Compliance: Yes Side effects from medications: No Attending Groups: Intermittent Review of Systems Acute medical concerns: No Medical Review of Systems: unchanged Review of Systems Review of Systems reports feeling weakness and anergic Mental Status Exam Mental Status Exam Patient Appearance: Fatigued Patient Orientation: Person, Place, Time and Situation Level of Consciousness: Alert Patient Behavior: Appropriate, Talkative, Cooperative, Passive, Anxious, Fearful, Fatigued, Distractible, Isolative and Good Eye Contact Mood Description: Depressed, Anxious and Angry Affect Description: Anxious Patient Cognition Impaired: Yes Ability to Follow Directions: Good Speech Pattern: Spontaneous Speech and Long Pauses Memory Description: Remote Impaired Hallucinations: None Delusions: Not Present Thought Process: Rumination and Slowed Thinking Thought Content: positive for [place], positive for Circumstantial, positive for Perseveration and positive for Suicidal Ideation (passive) Depressive Symptoms: Sleeping More Than Usual, Feelings of Worthlessness, Hopelessness (grief), Unhappiness, Increased Fatigue, Thoughts of /Suicide (passive), Loss of Energy and Difficulty Concentrating Judgement: Fair Diagnostics Vital Signs (24Hr): Vital Signs - 24 hr 11/20/24 19:48 11/21/24 08:35 Temperature 98.2 F 96 F L Pulse Rate 77 70 Respiratory Rate 18 Blood Pressure 117/62 85/49 L Pulse Oximetry 99 97 Oxygen Delivery Method Room Air Room Air Labs 11/13/24 08:06 Medications Medications Current Medications Acetaminophen (Acetaminophen 325 Mg Tablet) 650 mg PO Q6H PRN PRN Reason: pain 1-10 Last Admin: 11/19/24 18:48 Dose: 650 mg Al Hydroxide/Mg Hydroxide (Magnesium Hydrox/Alum Hydrox 30 Ml Oral.Susp) 30 ml PO Q6H PRN PRN Reason: Heartburn/Nausea Bupropion HCl (Bupropion Hcl Xl 150 Mg Tab.Er.24h) 150 mg PO DAILY [facility] Last Admin: 11/21/24 09:29 Dose: 150 mg Clonidine HCl (Clonidine Hcl 0.1 Mg Tablet) 0.1 mg PO Q4H PRN; Protocol PRN Reason: mod anxiety Last Admin: 11/17/24 17:56 Dose: 0.1 mg Clonidine HCl (Clonidine Hcl 0.1 Mg Tablet) 0.1 mg PO BEDTIME [facility]; Protocol Last Admin: 11/20/24 21:24 Dose: 0.1 mg Cyclobenzaprine HCl (Cyclobenzaprine Hcl 10 Mg Tablet) 10 mg PO TID PRN PRN Reason: Muscle Spasm Last Admin: 11/20/24 21:24 Dose: 10 mg Divalproex Sodium (Divalproex Sodium Sprinkles 125 Mg Cap.) 125 mg PO BID [facility] Last Admin: 11/21/24 09:29 Dose: 125 mg Docusate Sodium (Docusate Sodium 100 Mg Capsule) 100 mg PO BID [facility] Last Admin: 11/21/24 09:29 Dose: 100 mg Gabapentin (Gabapentin 400 Mg Capsule) 800 mg PO QID [facility] Last Admin: 11/21/24 09:28 Dose: 800 mg Hydroxyzine HCl (Hydroxyzine Hcl 25 Mg Tablet) 25 mg PO Q6H PRN PRN Reason: Anxiety,mild Last Admin: 11/20/24 21:23 Dose: 25 mg Magnesium Hydroxide (Milk Of Magnesia 30 Ml Oral.Susp) 30 ml PO DAILY PRN PRN Reason: Constipation Methadone HCl (Methadone Hcl 20 Mg/2 Ml Oral.Conc) 85 mg PO DAILY@0800 [facility] Last Admin: 11/21/24 08:27 Dose: 85 mg Naloxone HCl (Naloxone Hcl Nasal 4 Mg [place]) 4 mg NOSTRILALT ONCE PRN PRN Reason: opiate od Nicotine Polacrilex (Nicotine Polacrilex 2 Mg Gum) 4 mg BUCCAL Q2H PRN PRN Reason: Nicotine Cravings Last Admin: 11/18/24 20:59 Dose: 4 mg Olanzapine (Olanzapine 5 Mg Tablet) 5 mg PO TID PRN PRN Reason: agitation Last Admin: 11/13/24 00:20 Dose: 5 mg Olanzapine (Olanzapine 10 Mg Tablet) 10 mg PO BEDTIME [facility] Last Admin: 11/20/24 21:25 Dose: 10 mg Polyethylene Glycol (Polyethylene Glycol 3350 17 Gm Powd.Pack) 17 gm PO DAILY [facility] Last Admin: 11/21/24 09:29 Dose: 17 gm Quetiapine Fumarate (Quetiapine Fumarate 400 Mg Tablet) 400 mg PO BEDTIME [facility] Last Admin: 11/20/24 21:24 Dose: 400 mg Quetiapine Fumarate (Quetiapine Fumarate 50 Mg Tablet) 50 mg PO TID PRN PRN Reason: anxiety, agitation Last Admin: 11/20/24 15:32 Dose: 50 mg Trazodone HCl (Trazodone Hcl 50 Mg Tablet) 50 mg PO BEDTIME MRX1 PRN PRN Reason: Insomnia Last Admin: 11/20/24 21:25 Dose: 50 mg Allergies Allergies Allergy/AdvReac Type Severity Reaction Status Date / Time codeine Allergy unknown Verified 11/12/24 16:59 Assessment & Plan Assessment & Plan (1) Opioid use disorder: Status: Acute Code(s): F11.90 - Opioid use, unspecified, uncomplicated (2) Bipolar disorder: Status: Acute Code(s): F31.9 - Bipolar disorder, unspecified (3) Polysubstance use disorder: Status: Acute Code(s): F19.90 - Other psychoactive substance use, unspecified, uncomplicated Plan History of depression, chronic severe polysubstance abuse; carries a diagnosis of bipolar disorder;opiate Use Disorder. Hx of C-1, C-2 spinal injury. Hospital course 11/14: Laying in bed. guarded. reports feeling depressed d/t life in general . Pt reports sleeping well last night. denies SI/HI/VH/AH. Kept 1:1 brief; states she doesn't need anything and just wants to sleep . continue current tx plan. 11/15 -Patient reports that she is feeling better than when she came in. Still depressed and would like to get on a medication that could help with depression; discussed options, risks/side effects and patient agreed to try Wellbutrin -discussed history of bipolar diagnosis however check writer can not solicit actual criteria to meet this diagnosis and it seems that patient just has flare upset only last hours or 1 or 2 days day at most; chronic history of consistent cocaine addiction making it difficult to further assess. -discussed behavioral activation and getting out of her room more, participate in the milieu to which she agreed -signed cv 11/17: no changes 11/19: Fatigue, constipation, dsyphoria, feeling weak, anergic. Team looking at rehab options to help pt regain strength Encouraged milieu, ambulation Dulcolax prn 11/20: Depakote, 125 mg bid. Target sx-anxiety 11/21: Continue current regime Plan: CV Start Wellbutrin XL 150 mg Collateral Contact Re-establish medicine regime Encourage full milieu Discharge planning Reason for continued inpatient stay Substantial Risk for: rapid decompensation and med/psych decompensation Time Spent With Patient Time: Total time managing care of this patient today ____ minutes.
[2024-11-21] MEDS: QUEtiapine Fumarate 50 MG TABLET PO (13:28)
[2024-11-21] MEDS: Cyclobenzaprine HCl 10 MG TABLET PO (13:28)
[2024-11-21] MEDS: OLANZapine 5 MG TABLET PO (18:06)
[2024-11-21 20:00] VITALS: BP 111/66; PULSE 73; RESP 18; TEMP 36.3; O2SAT 100
[2024-11-21] MEDS: traZODone HCL 50 MG TABLET PO (20:41)
[2024-11-21] MEDS: cloNIDine HCL 0.1 MG TABLET PO (20:42)
[2024-11-21] MEDS: QUEtiapine Fumarate 400 MG TABLET PO (20:42)
[2024-11-21] MEDS: OLANZapine 10 MG TABLET PO (20:42)
[2024-11-21] MEDS: Nicotine Polacrilex 2 MG GUM 4 MG BUCCAL (20:46)
[2024-11-22 08:00] VITALS: BP 94/60; PULSE 57; RESP 16; TEMP 36.3; O2SAT 96
[2024-11-22] MEDS: methADONE HCl 20 MG/2 ML ORAL.CONC 85 MG PO (08:17)
[2024-11-22] MEDS: Divalproex Sodium Sprinkles 125 MG CAP.DR.SPR PO ×2 (09:19→20:33)
[2024-11-22] MEDS: buPROPion HCl XL 150 MG TAB.ER.24H PO (09:19)
[2024-11-22] MEDS: Gabapentin 400 MG CAPSULE 800 MG PO ×4 (09:19→20:34)
[2024-11-22] MEDS: Docusate Sodium 100 MG CAPSULE PO ×2 (09:20→20:33)
--- NOTE | 2024-11-22 10:36 | P.PNPSI_ITS ---
Subjective Subjective Date of Service: 11/22/24 Reason For Visit: Bipolar Subjective Notes: Conditional Voluntary Healthcare Proxy: No Guardianship: No Medical Problems Affecting Mental Status: No Interim History: I am glad to stay a few more days. I am trying to do groups. Reports feeling some improvement today, I thought about [place] all day yesterday, but he can do some things to take care of himself too. Pt interacting with peers, team, staff, making contact with her residential team. Attempting ambulation, movement. Discussed PT consult for some direction prior to DC. Medication Compliance: Yes Side effects from medications: No Attending Groups: Intermittent Review of Systems Acute medical concerns: No Review of Systems Review of Systems fatigue, weakness Mental Status Exam Mental Status Exam Patient Appearance: Fatigued Patient Orientation: Person, Place, Time and Situation Level of Consciousness: Alert Patient Behavior: Appropriate, Talkative, Cooperative, Passive, Anxious, Fearful, Fatigued, Distractible, Isolative and Good Eye Contact Mood Description: Depressed Affect Description: Flat Patient Cognition Impaired: Yes Ability to Follow Directions: Good Speech Pattern: Spontaneous Speech and Long Pauses Memory Description: Remote Impaired Hallucinations: None Delusions: Not Present Thought Process: Rumination and Slowed Thinking Thought Content: positive for [place], positive for Circumstantial, positive for Perseveration and positive for Suicidal Ideation (passive) Depressive Symptoms: Sleeping More Than Usual, Feelings of Worthlessness, Hopelessness (grief), Unhappiness, Increased Fatigue, Thoughts of /Suicide (passive), Loss of Energy and Difficulty Concentrating Judgement: Fair Diagnostics Vital Signs (24Hr): Vital Signs - 24 hr 11/21/24 20:00 11/22/24 08:00 Temperature 97.4 F 97.4 F Pulse Rate 73 57 Respiratory Rate 18 16 Blood Pressure 111/66 94/60 Pulse Oximetry 100 96 Oxygen Delivery Method Room Air Labs 11/13/24 08:06 Medications Medications Current Medications Acetaminophen (Acetaminophen 325 Mg Tablet) 650 mg PO Q6H PRN PRN Reason: pain 1-10 Last Admin: 11/19/24 18:48 Dose: 650 mg Al Hydroxide/Mg Hydroxide (Magnesium Hydrox/Alum Hydrox 30 Ml Oral.Susp) 30 ml PO Q6H PRN PRN Reason: Heartburn/Nausea Bupropion HCl (Bupropion Hcl Xl 150 Mg Tab.Er.24h) 150 mg PO DAILY BELINDA Last Admin: 11/22/24 09:19 Dose: 150 mg Clonidine HCl (Clonidine Hcl 0.1 Mg Tablet) 0.1 mg PO Q4H PRN; Protocol PRN Reason: mod anxiety Last Admin: 11/17/24 17:56 Dose: 0.1 mg Clonidine HCl (Clonidine Hcl 0.1 Mg Tablet) 0.1 mg PO BEDTIME [facility]; Protocol Last Admin: 11/21/24 20:42 Dose: 0.1 mg Cyclobenzaprine HCl (Cyclobenzaprine Hcl 10 Mg Tablet) 10 mg PO TID PRN PRN Reason: Muscle Spasm Last Admin: 11/21/24 13:28 Dose: 10 mg Divalproex Sodium (Divalproex Sodium Sprinkles 125 Mg Justin.) 125 mg PO BID [facility] Last Admin: 11/22/24 09:19 Dose: 125 mg Docusate Sodium (Docusate Sodium 100 Mg Capsule) 100 mg PO BID [facility] Last Admin: 11/22/24 09:20 Dose: 100 mg Gabapentin (Gabapentin 400 Mg Capsule) 800 mg PO QID [facility] Last Admin: 11/22/24 09:19 Dose: 800 mg Hydroxyzine HCl (Hydroxyzine Hcl 25 Mg Tablet) 25 mg PO Q6H PRN PRN Reason: Anxiety,mild Last Admin: 11/20/24 21:23 Dose: 25 mg Magnesium Hydroxide (Milk Of Magnesia 30 Ml Oral.Susp) 30 ml PO DAILY PRN PRN Reason: Constipation Methadone HCl (Methadone Hcl 20 Mg/2 Ml Oral.Conc) 85 mg PO DAILY@0800 [facility] Last Admin: 11/22/24 08:17 Dose: 85 mg Naloxone HCl (Naloxone Hcl Nasal 4 Mg [place]) 4 mg NOSTRILALT ONCE PRN PRN Reason: opiate od Nicotine Polacrilex (Nicotine Polacrilex 2 Mg Gum) 4 mg BUCCAL Q2H PRN PRN Reason: Nicotine Cravings Last Admin: 11/21/24 20:46 Dose: 4 mg Olanzapine (Olanzapine 5 Mg Tablet) 5 mg PO TID PRN PRN Reason: agitation Last Admin: 11/21/24 18:06 Dose: 5 mg Olanzapine (Olanzapine 10 Mg Tablet) 10 mg PO BEDTIME [facility] Last Admin: 11/21/24 20:42 Dose: 10 mg Polyethylene Glycol (Polyethylene Glycol 3350 17 Gm Powd.Pack) 17 gm PO DAILY [facility] Last Admin: 11/22/24 09:23 Dose: Not Given Quetiapine Fumarate (Quetiapine Fumarate 400 Mg Tablet) 400 mg PO BEDTIME BELINDA Last Admin: 11/21/24 20:42 Dose: 400 mg Quetiapine Fumarate (Quetiapine Fumarate 50 Mg Tablet) 50 mg PO TID PRN PRN Reason: anxiety, agitation Last Admin: 11/21/24 13:28 Dose: 50 mg Trazodone HCl (Trazodone Hcl 50 Mg Tablet) 50 mg PO BEDTIME MRX1 PRN PRN Reason: Insomnia Last Admin: 11/21/24 20:41 Dose: 50 mg Allergies Allergies Allergy/AdvReac Type Severity Reaction Status Date / Time codeine Allergy unknown Verified 11/12/24 16:59 Assessment & Plan Assessment & Plan (1) Opioid use disorder: Status: Acute Code(s): F11.90 - Opioid use, unspecified, uncomplicated (2) Bipolar disorder: Status: Acute Code(s): F31.9 - Bipolar disorder, unspecified (3) Polysubstance use disorder: Status: Acute Code(s): F19.90 - Other psychoactive substance use, unspecified, uncomplicated Plan History of depression, chronic severe polysubstance abuse; carries a diagnosis of bipolar disorder;opiate Use Disorder. Hx of C-1, C-2 spinal injury. Hospital course 11/14: Laying in bed. guarded. reports feeling depressed d/t life in general . Pt reports sleeping well last night. denies SI/HI/VH/AH. Kept 1:1 brief; states she doesn't need anything and just wants to sleep . continue current tx plan. 11/15 -Patient reports that she is feeling better than when she came in. Still depressed and would like to get on a medication that could help with depression; discussed options, risks/side effects and patient agreed to try Wellbutrin -discussed history of bipolar diagnosis however information writer can not solicit actual criteria to meet this diagnosis and it seems that patient just has flare upset only last hours or 1 or 2 days day at most; chronic history of consistent cocaine addiction making it difficult to further assess. -discussed behavioral activation and getting out of her room more, participate in the milieu to which she agreed -signed cv 11/17: no changes 11/19: Fatigue, constipation, dsyphoria, feeling weak, anergic. Team looking at rehab options to help pt regain strength Encouraged milieu, ambulation Dulcolax prn 11/20: Depakote, 125 mg bid. Target sx-anxiety 11/22: Continue plan/regime Plan: CV Start Wellbutrin XL 150 mg Collateral Contact Re-establish medicine regime Encourage full milieu Discharge planning Reason for continued inpatient stay Substantial Risk for: rapid decompensation Time Spent With Patient Time: Total time managing care of this patient today ____ minutes.
[2024-11-22] MEDS: Cyclobenzaprine HCl 10 MG TABLET PO ×2 (12:51→18:51)
[2024-11-22] MEDS: Acetaminophen 325 MG TABLET 650 MG PO ×2 (12:51→18:52)
[2024-11-22 20:00] VITALS: BP 115/56; PULSE 74; RESP 15; TEMP 36.3; O2SAT 100
[2024-11-22] MEDS: QUEtiapine Fumarate 400 MG TABLET PO (20:33)
[2024-11-22] MEDS: traZODone HCL 50 MG TABLET PO (20:33)
[2024-11-22] MEDS: OLANZapine 10 MG TABLET PO (20:33)
[2024-11-22] MEDS: cloNIDine HCL 0.1 MG TABLET PO (20:53)
[2024-11-23] MEDS: methADONE HCl 20 MG/2 ML ORAL.CONC 85 MG PO (07:52)
[2024-11-23 08:00] VITALS: BP 98/60; PULSE 65; RESP 16; TEMP 36.4; O2SAT 98
[2024-11-23] MEDS: Acetaminophen 325 MG TABLET 650 MG PO (09:10)
[2024-11-23] MEDS: Divalproex Sodium Sprinkles 125 MG CAP.DR.SPR PO ×2 (09:10→20:43)
[2024-11-23] MEDS: Gabapentin 400 MG CAPSULE 800 MG PO ×4 (09:10→20:41)
[2024-11-23] MEDS: Cyclobenzaprine HCl 10 MG TABLET PO ×2 (09:10→13:19)
[2024-11-23] MEDS: buPROPion HCl XL 150 MG TAB.ER.24H PO (09:10)
[2024-11-23] MEDS: Docusate Sodium 100 MG CAPSULE PO ×2 (09:11→20:43)
--- NOTE | 2024-11-23 09:26 | HO.PSYCHPN ---
Subjective Subjective Date of Service: 11/23/24 Reason For Visit: Bipolar Interim History: Pt reports she slept a bit better. She was declined by physical therapy for consultation. Pt is informing peers and team that she has ordered items to be sent to her sister's home to complete her suicide once discharged. She reports she has no reason to live. She is spending a good deal of time in bed She has been encouraged to attend more of the group program. Medication Compliance: Yes Side effects from medications: No Attending Groups: Intermittent Review of Systems Acute medical concerns: No Medical Review of Systems: unchanged Review of Systems Review of Systems chronic pain Mental Status Exam Mental Status Exam Patient Appearance: Fatigued Patient Orientation: Person, Place, Time and Situation Level of Consciousness: Alert Patient Behavior: Appropriate, Talkative, Cooperative, Passive, Anxious, Fearful, Fatigued, Distractible, Isolative and Good Eye Contact Mood Description: Depressed Affect Description: Flat Patient Cognition Impaired: Yes Ability to Follow Directions: Good Speech Pattern: Spontaneous Speech and Long Pauses Memory Description: Remote Impaired Hallucinations: None Delusions: Not Present Thought Process: Rumination and Slowed Thinking Thought Content: positive for [place], positive for Circumstantial, positive for Perseveration and positive for Suicidal Ideation Depressive Symptoms: Sleeping More Than Usual, Feelings of Worthlessness, Hopelessness (grief), Unhappiness, Increased Fatigue, Thoughts of /Suicide, Loss of Energy and Difficulty Concentrating Judgement: Poor Diagnostics Vital Signs (24Hr): Vital Signs - 24 hr 11/22/24 20:00 Temperature 97.3 F Pulse Rate 74 Respiratory Rate 15 Blood Pressure 115/56 L Pulse Oximetry 100 Labs 11/13/24 08:06 Medications Medications Current Medications Acetaminophen (Acetaminophen 325 Mg Tablet) 650 mg PO Q6H PRN PRN Reason: pain 1-10 Last Admin: 11/23/24 09:10 Dose: 650 mg Al Hydroxide/Mg Hydroxide (Magnesium Hydrox/Alum Hydrox 30 Ml Oral.Susp) 30 ml PO Q6H PRN PRN Reason: Heartburn/Nausea Bupropion HCl (Bupropion Hcl Xl 150 Mg Tab.Er.24h) 150 mg PO DAILY BELINDA Last Admin: 11/23/24 09:10 Dose: 150 mg Clonidine HCl (Clonidine Hcl 0.1 Mg Tablet) 0.1 mg PO Q4H PRN; Protocol PRN Reason: mod anxiety Last Admin: 11/17/24 17:56 Dose: 0.1 mg Clonidine HCl (Clonidine Hcl 0.1 Mg Tablet) 0.1 mg PO BEDTIME [facility]; Protocol Last Admin: 11/22/24 20:53 Dose: 0.1 mg Cyclobenzaprine HCl (Cyclobenzaprine Hcl 10 Mg Tablet) 10 mg PO TID PRN PRN Reason: Muscle Spasm Last Admin: 11/23/24 09:10 Dose: 10 mg Divalproex Sodium (Divalproex Sodium Sprinkles 125 Mg ) 125 mg PO BID [facility] Last Admin: 11/23/24 09:10 Dose: 125 mg Docusate Sodium (Docusate Sodium 100 Mg Capsule) 100 mg PO BID [facility] Last Admin: 11/23/24 09:11 Dose: 100 mg Gabapentin (Gabapentin 400 Mg Capsule) 800 mg PO QID [facility] Last Admin: 11/23/24 09:10 Dose: 800 mg Hydroxyzine HCl (Hydroxyzine Hcl 25 Mg Tablet) 25 mg PO Q6H PRN PRN Reason: Anxiety,mild Last Admin: 11/20/24 21:23 Dose: 25 mg Magnesium Hydroxide (Milk Of Magnesia 30 Ml Oral.Susp) 30 ml PO DAILY PRN PRN Reason: Constipation Methadone HCl (Methadone Hcl 20 Mg/2 Ml Oral.Conc) 85 mg PO DAILY@0800 [facility] Last Admin: 11/23/24 07:52 Dose: 85 mg Naloxone HCl (Naloxone Hcl Nasal 4 Mg [place]) 4 mg NOSTRILALT ONCE PRN PRN Reason: opiate od Nicotine Polacrilex (Nicotine Polacrilex 2 Mg Gum) 4 mg BUCCAL Q2H PRN PRN Reason: Nicotine Cravings Last Admin: 11/21/24 20:46 Dose: 4 mg Olanzapine (Olanzapine 5 Mg Tablet) 5 mg PO TID PRN PRN Reason: agitation Last Admin: 11/21/24 18:06 Dose: 5 mg Olanzapine (Olanzapine 10 Mg Tablet) 10 mg PO BEDTIME [facility] Last Admin: 11/22/24 20:33 Dose: 10 mg Polyethylene Glycol (Polyethylene Glycol 3350 17 Gm Powd.Pack) 17 gm PO DAILY [facility] Last Admin: 11/22/24 09:23 Dose: Not Given Quetiapine Fumarate (Quetiapine Fumarate 400 Mg Tablet) 400 mg PO BEDTIME [facility] Last Admin: 11/22/24 20:33 Dose: 400 mg Quetiapine Fumarate (Quetiapine Fumarate 50 Mg Tablet) 50 mg PO TID PRN PRN Reason: anxiety, agitation Last Admin: 11/21/24 13:28 Dose: 50 mg Trazodone HCl (Trazodone Hcl 50 Mg Tablet) 50 mg PO BEDTIME MRX1 PRN PRN Reason: Insomnia Last Admin: 11/22/24 20:33 Dose: 50 mg Allergies Allergies Allergy/AdvReac Type Severity Reaction Status Date / Time codeine Allergy unknown Verified 11/12/24 16:59 Assessment & Plan Assessment & Plan (1) Opioid use disorder: Status: Acute Code(s): F11.90 - Opioid use, unspecified, uncomplicated (2) Bipolar disorder: Status: Acute Code(s): F31.9 - Bipolar disorder, unspecified (3) Polysubstance use disorder: Status: Acute Code(s): F19.90 - Other psychoactive substance use, unspecified, uncomplicated Plan History of depression, chronic severe polysubstance abuse; carries a diagnosis of bipolar disorder;opiate Use Disorder. Hx of C-1, C-2 spinal injury. Hospital course 11/14: Laying in bed. guarded. reports feeling depressed d/t life in general . Pt reports sleeping well last night. denies SI/HI/VH/AH. Kept 1:1 brief; states she doesn't need anything and just wants to sleep . continue current tx plan. 11/15 -Patient reports that she is feeling better than when she came in. Still depressed and would like to get on a medication that could help with depression; discussed options, risks/side effects and patient agreed to try Wellbutrin -discussed history of bipolar diagnosis however story writer can not solicit actual criteria to meet this diagnosis and it seems that patient just has flare upset only last hours or 1 or 2 days day at most; chronic history of consistent cocaine addiction making it difficult to further assess. -discussed behavioral activation and getting out of her room more, participate in the milieu to which she agreed -signed cv 11/17: no changes 11/19: Fatigue, constipation, dsyphoria, feeling weak, anergic. Team looking at rehab options to help pt regain strength Encouraged milieu, ambulation Dulcolax prn 11/20: Depakote, 125 mg bid. Target sx-anxiety 11/22: Continue plan/regime 11/23: Encourage milieu groups. Plan: CV Start Wellbutrin XL 150 mg Collateral Contact Re-establish medicine regime Encourage full milieu Discharge planning Reason for continued inpatient stay Substantial Risk for: rapid decompensation and med/psych decompensation Time Spent With Patient Time: Total time managing care of this patient today ____ minutes.
[2024-11-23 20:00] VITALS: BP 94/58; PULSE 80; RESP 15; TEMP 36.9; O2SAT 99
[2024-11-23] MEDS: Nicotine Polacrilex 2 MG GUM 4 MG BUCCAL (20:12)
[2024-11-23] MEDS: OLANZapine 10 MG TABLET PO (20:41)
[2024-11-23] MEDS: cloNIDine HCL 0.1 MG TABLET PO (20:42)
[2024-11-23] MEDS: traZODone HCL 50 MG TABLET PO (20:43)
[2024-11-23] MEDS: QUEtiapine Fumarate 400 MG TABLET PO (20:43)
[2024-11-24] MEDS: methADONE HCl 20 MG/2 ML ORAL.CONC 85 MG PO (07:58)
[2024-11-24 08:00] VITALS: BP 89/52; PULSE 65; RESP 18; TEMP 36.6; O2SAT 96
[2024-11-24] MEDS: Cyclobenzaprine HCl 10 MG TABLET PO (09:07)
[2024-11-24] MEDS: Docusate Sodium 100 MG CAPSULE PO ×2 (09:08→20:36)
[2024-11-24] MEDS: QUEtiapine Fumarate 50 MG TABLET PO (09:08)
[2024-11-24] MEDS: Gabapentin 400 MG CAPSULE 800 MG PO ×4 (09:08→20:35)
[2024-11-24] MEDS: Divalproex Sodium Sprinkles 125 MG CAP.DR.SPR PO ×2 (09:09→20:34)
[2024-11-24] MEDS: buPROPion HCl XL 150 MG TAB.ER.24H PO (09:09)
--- NOTE | 2024-11-24 09:37 | P.PNPSI_ITS ---
Subjective Subjective Date of Service: 11/24/24 Reason For Visit: Bipolar Subjective Notes: Conditional Voluntary Healthcare Proxy: No Guardianship: No Medical Problems Affecting Mental Status: No Interim History: Pt has shared with team and peers her plan to suicide. States she has had a hose sent to her sisters home so she may attach this to her exhaust system. Angry, flat today. Why did no one help me sooner, when I was young? Because no one cared. Medication Compliance: Yes Side effects from medications: No Attending Groups: No Review of Systems Acute medical concerns: No Medical Review of Systems: unchanged Review of Systems Review of Systems chronic pain reported today Mental Status Exam Mental Status Exam Patient Appearance: Fatigued Patient Orientation: Person, Place, Time and Situation Level of Consciousness: Alert Patient Behavior: Appropriate, Talkative, Cooperative, Passive, Anxious, Fearful, Fatigued, Distractible, Isolative and Good Eye Contact Mood Description: Depressed Affect Description: Flat Patient Cognition Impaired: Yes Ability to Follow Directions: Good Speech Pattern: Spontaneous Speech and Long Pauses Memory Description: Remote Impaired Hallucinations: None Delusions: Not Present Thought Process: Rumination and Slowed Thinking Thought Content: positive for [place], positive for Circum[place], positive for Perseveration and positive for Suicidal Ideation Depressive Symptoms: Sleeping More Than Usual, Feelings of Worthlessness, Hopelessness (grief), Unhappiness, Increased Fatigue, Thoughts of /Suicide, Loss of Energy and Difficulty Concentrating Judgement: Poor Diagnostics Vital Signs (24Hr): Vital Signs - 24 hr 11/23/24 20:00 11/24/24 08:00 Temperature 98.4 F 97.8 F Pulse Rate 80 65 Respiratory Rate 15 18 Blood Pressure 94/58 L 89/52 L Pulse Oximetry 99 96 Oxygen Delivery Method Room Air Labs 11/13/24 08:06 Medications Medications Current Medications Acetaminophen (Acetaminophen 325 Mg Tablet) 650 mg PO Q6H PRN PRN Reason: pain 1-10 Last Admin: 11/23/24 09:10 Dose: 650 mg Al Hydroxide/Mg Hydroxide (Magnesium Hydrox/Alum Hydrox 30 Ml Oral.Susp) 30 ml PO Q6H PRN PRN Reason: Heartburn/Nausea Bupropion HCl (Bupropion Hcl Xl 150 Mg Tab.Er.24h) 150 mg PO DAILY BELINDA Last Admin: 11/24/24 09:09 Dose: 150 mg Clonidine HCl (Clonidine Hcl 0.1 Mg Tablet) 0.1 mg PO Q4H PRN; Protocol PRN Reason: mod anxiety Last Admin: 11/17/24 17:56 Dose: 0.1 mg Clonidine HCl (Clonidine Hcl 0.1 Mg Tablet) 0.1 mg PO BEDTIME [facility]; Protocol Last Admin: 11/23/24 20:42 Dose: 0.1 mg Cyclobenzaprine HCl (Cyclobenzaprine Hcl 10 Mg Tablet) 10 mg PO TID PRN PRN Reason: Muscle Spasm Last Admin: 11/24/24 09:07 Dose: 10 mg Divalproex Sodium (Divalproex Sodium Sprinkles 125 Mg Justin.) 125 mg PO BID [facility] Last Admin: 11/24/24 09:09 Dose: 125 mg Docusate Sodium (Docusate Sodium 100 Mg Capsule) 100 mg PO BID [facility] Last Admin: 11/24/24 09:08 Dose: 100 mg Gabapentin (Gabapentin 400 Mg Capsule) 800 mg PO QID [facility] Last Admin: 11/24/24 09:08 Dose: 800 mg Hydroxyzine HCl (Hydroxyzine Hcl 25 Mg Tablet) 25 mg PO Q6H PRN PRN Reason: Anxiety,mild Last Admin: 11/20/24 21:23 Dose: 25 mg Magnesium Hydroxide (Milk Of Magnesia 30 Ml Oral.Susp) 30 ml PO DAILY PRN PRN Reason: Constipation Methadone HCl (Methadone Hcl 20 Mg/2 Ml Oral.Conc) 85 mg PO DAILY@0800 [facility] Last Admin: 11/24/24 07:58 Dose: 85 mg Naloxone HCl (Naloxone Hcl Nasal 4 Mg [place]) 4 mg NOSTRILALT ONCE PRN PRN Reason: opiate od Nicotine Polacrilex (Nicotine Polacrilex 2 Mg Gum) 4 mg BUCCAL Q2H PRN PRN Reason: Nicotine Cravings Last Admin: 11/23/24 20:12 Dose: 4 mg Olanzapine (Olanzapine 5 Mg Tablet) 5 mg PO TID PRN PRN Reason: agitation Last Admin: 11/21/24 18:06 Dose: 5 mg Olanzapine (Olanzapine 10 Mg Tablet) 10 mg PO BEDTIME [facility] Last Admin: 11/23/24 20:41 Dose: 10 mg Polyethylene Glycol (Polyethylene Glycol 3350 17 Gm Powd.Pack) 17 gm PO DAILY [facility] Last Admin: 11/24/24 08:01 Dose: Not Given Quetiapine Fumarate (Quetiapine Fumarate 400 Mg Tablet) 400 mg PO BEDTIME BELINDA Last Admin: 11/23/24 20:43 Dose: 400 mg Quetiapine Fumarate (Quetiapine Fumarate 50 Mg Tablet) 50 mg PO TID PRN PRN Reason: anxiety, agitation Last Admin: 11/24/24 09:08 Dose: 50 mg Trazodone HCl (Trazodone Hcl 50 Mg Tablet) 50 mg PO BEDTIME MRX1 PRN PRN Reason: Insomnia Last Admin: 11/23/24 20:43 Dose: 50 mg Allergies Allergies Allergy/AdvReac Type Severity Reaction Status Date / Time codeine Allergy unknown Verified 11/12/24 16:59 Assessment & Plan Assessment & Plan (1) Opioid use disorder: Status: Acute Code(s): F11.90 - Opioid use, unspecified, uncomplicated (2) Bipolar disorder: Status: Acute Code(s): F31.9 - Bipolar disorder, unspecified (3) Polysubstance use disorder: Status: Acute Code(s): F19.90 - Other psychoactive substance use, unspecified, uncomplicated Plan History of depression, chronic severe polysubstance abuse; carries a diagnosis of bipolar disorder;opiate Use Disorder. Hx of C-1, C-2 spinal injury. Hospital course 11/14: Laying in bed. guarded. reports feeling depressed d/t life in general . Pt reports sleeping well last night. denies SI/HI/VH/AH. Kept 1:1 brief; states she doesn't need anything and just wants to sleep . continue current tx plan. 11/15 -Patient reports that she is feeling better than when she came in. Still depressed and would like to get on a medication that could help with depression; discussed options, risks/side effects and patient agreed to try Wellbutrin -discussed history of bipolar diagnosis however short story writer can not solicit actual criteria to meet this diagnosis and it seems that patient just has flare upset only last hours or 1 or 2 days day at most; chronic history of consistent cocaine addiction making it difficult to further assess. -discussed behavioral activation and getting out of her room more, participate in the milieu to which she agreed -signed cv 11/17: no changes 11/19: Fatigue, constipation, dsyphoria, feeling weak, anergic. Team looking at rehab options to help pt regain strength Encouraged milieu, ambulation Dulcolax prn 11/20: Depakote, 125 mg bid. Target sx-anxiety 11/22: Continue plan/regime 11/24: Encourage milieu, participation. Pt isolative, angry, depressed today. Plan: CV Start Wellbutrin XL 150 mg Collateral Contact Re-establish medicine regime Encourage full milieu Discharge planning Reason for continued inpatient stay Substantial Risk for: rapid decompensation Time Spent With Patient Time: Total time managing care of this patient today ____ minutes.
[2024-11-24] MEDS: hydrOXYzine HCL 25 MG TABLET PO (13:43)
[2024-11-24 19:39] VITALS: BP 94/50; PULSE 82; TEMP 36.6; O2SAT 99
[2024-11-24] MEDS: OLANZapine 10 MG TABLET PO (20:35)
[2024-11-24] MEDS: traZODone HCL 50 MG TABLET PO ×2 (20:36→21:12)
[2024-11-24] MEDS: QUEtiapine Fumarate 400 MG TABLET PO (20:36)
[2024-11-24 21:12] VITALS: BP 98/54
[2024-11-25] MEDS: methADONE HCl 20 MG/2 ML ORAL.CONC 85 MG PO (07:51)
[2024-11-25 08:00] VITALS: BP 103/53; PULSE 75; RESP 16; TEMP 36.8; O2SAT 97
[2024-11-25] MEDS: buPROPion HCl XL 150 MG TAB.ER.24H PO (08:04)
[2024-11-25] MEDS: Docusate Sodium 100 MG CAPSULE PO ×2 (08:04→20:36)
[2024-11-25] MEDS: Divalproex Sodium Sprinkles 125 MG CAP.DR.SPR PO ×2 (08:04→20:36)
[2024-11-25] MEDS: Gabapentin 400 MG CAPSULE 800 MG PO ×4 (08:04→20:36)
[2024-11-25] MEDS: Cyclobenzaprine HCl 10 MG TABLET PO ×2 (08:05→14:18)
--- NOTE | 2024-11-25 08:26 | P.PNPSI_ITS ---
Subjective Subjective Date of Service: 11/25/24 Reason For Visit: Bipolar Subjective Notes: Conditional Voluntary Healthcare Proxy: No Guardianship: No Medical Problems Affecting Mental Status: No Interim History: Remains in bed most of the time, depressed. No wanting to discuss current issues. Will begin to cut back on some meds as they may be contributing. Will decrease Depakote to 125 mg and Seroquel to 200 mg. Medication Compliance: Yes Side effects from medications: No Attending Groups: Yes Review of Systems Acute medical concerns: No Review of Systems Review of Systems Yes Unobtainable due to mental status Mental Status Exam Mental Status Exam Patient Appearance: Fatigued Patient Orientation: Person, Place, Time and Situation Level of Consciousness: Alert Patient Behavior: Appropriate, Talkative, Cooperative, Passive, Anxious, Fearful, Fatigued, Distractible, Isolative and Good Eye Contact Mood Description: Depressed Affect Description: Flat Patient Cognition Impaired: Yes Ability to Follow Directions: Good Speech Pattern: Spontaneous Speech and Long Pauses Memory Description: Remote Impaired Hallucinations: None Delusions: Not Present Thought Process: Rumination and Slowed Thinking Thought Content: positive for Pax, positive for Circumstantial, positive for Perseveration and positive for Suicidal Ideation Depressive Symptoms: Sleeping More Than Usual, Feelings of Worthlessness, Hopelessness (grief), Unhappiness, Increased Fatigue, Thoughts of /Suicide, Loss of Energy and Difficulty Concentrating Judgement: Poor Diagnostics Vital Signs (24Hr): Vital Signs - 24 hr 11/24/24 19:39 11/24/24 21:12 11/25/24 08:00 Temperature 97.8 F 98.3 F Pulse Rate 82 75 Respiratory Rate 16 Blood Pressure 94/50 L 98/54 L 103/53 L Pulse Oximetry 99 97 Oxygen Delivery Method Room Air Room Air Labs 11/13/24 08:06 Medications Medications Current Medications Acetaminophen (Acetaminophen 325 Mg Tablet) 650 mg PO Q6H PRN PRN Reason: pain 1-10 Last Admin: 11/23/24 09:10 Dose: 650 mg Al Hydroxide/Mg Hydroxide (Magnesium Hydrox/Alum Hydrox 30 Ml Oral.Susp) 30 ml PO Q6H PRN PRN Reason: Heartburn/Nausea Bupropion HCl (Bupropion Hcl Xl 150 Mg Tab.Er.24h) 150 mg PO DAILY [facility] Last Admin: 11/25/24 08:04 Dose: 150 mg Clonidine HCl (Clonidine Hcl 0.1 Mg Tablet) 0.1 mg PO Q4H PRN; Protocol PRN Reason: mod anxiety Last Admin: 11/17/24 17:56 Dose: 0.1 mg Clonidine HCl (Clonidine Hcl 0.1 Mg Tablet) 0.1 mg PO BEDTIME [facility]; Protocol Last Admin: 11/24/24 21:12 Dose: Not Given Cyclobenzaprine HCl (Cyclobenzaprine Hcl 10 Mg Tablet) 10 mg PO TID PRN PRN Reason: Muscle Spasm Last Admin: 11/25/24 08:05 Dose: 10 mg Divalproex Sodium (Divalproex Sodium Sprinkles 125 Mg ) 125 mg PO BID [facility] Last Admin: 11/25/24 08:04 Dose: 125 mg Docusate Sodium (Docusate Sodium 100 Mg Capsule) 100 mg PO BID [facility] Last Admin: 11/25/24 08:04 Dose: 100 mg Gabapentin (Gabapentin 400 Mg Capsule) 800 mg PO QID [facility] Last Admin: 11/25/24 08:04 Dose: 800 mg Hydrocortisone (Hydrocortisone 1 % Cream 28.35 Gm Tube) 1 appl TOPICAL BID PRN; Protocol PRN Reason: bed bug bites Hydroxyzine HCl (Hydroxyzine Hcl 25 Mg Tablet) 25 mg PO Q6H PRN PRN Reason: Anxiety,mild Last Admin: 11/24/24 13:43 Dose: 25 mg Magnesium Hydroxide (Milk Of Magnesia 30 Ml Oral.Susp) 30 ml PO DAILY PRN PRN Reason: Constipation Methadone HCl (Methadone Hcl 20 Mg/2 Ml Oral.Conc) 85 mg PO DAILY@0800 [facility] Last Admin: 11/25/24 07:51 Dose: 85 mg Naloxone HCl (Naloxone Hcl Nasal 4 Mg [place]) 4 mg NOSTRILALT ONCE PRN PRN Reason: opiate od Nicotine Polacrilex (Nicotine Polacrilex 2 Mg Gum) 4 mg BUCCAL Q2H PRN PRN Reason: Nicotine Cravings Last Admin: 11/23/24 20:12 Dose: 4 mg Olanzapine (Olanzapine 5 Mg Tablet) 5 mg PO TID PRN PRN Reason: agitation Last Admin: 11/21/24 18:06 Dose: 5 mg Olanzapine (Olanzapine 10 Mg Tablet) 10 mg PO BEDTIME [facility] Last Admin: 11/24/24 20:35 Dose: 10 mg Polyethylene Glycol (Polyethylene Glycol 3350 17 Gm Powd.Pack) 17 gm PO DAILY [facility] Last Admin: 11/25/24 08:07 Dose: Not Given Quetiapine Fumarate (Quetiapine Fumarate 400 Mg Tablet) 400 mg PO BEDTIME [facility] Last Admin: 11/24/24 20:36 Dose: 400 mg Quetiapine Fumarate (Quetiapine Fumarate 50 Mg Tablet) 50 mg PO TID PRN PRN Reason: anxiety, agitation Last Admin: 11/24/24 09:08 Dose: 50 mg Trazodone HCl (Trazodone Hcl 50 Mg Tablet) 50 mg PO BEDTIME MRX1 PRN PRN Reason: Insomnia Last Admin: 11/24/24 21:12 Dose: 50 mg Allergies Allergies Allergy/AdvReac Type Severity Reaction Status Date / Time codeine Allergy unknown Verified 11/12/24 16:59 Assessment & Plan Assessment & Plan (1) Opioid use disorder: Status: Acute Code(s): F11.90 - Opioid use, unspecified, uncomplicated (2) Bipolar disorder: Status: Acute Code(s): F31.9 - Bipolar disorder, unspecified (3) Polysubstance use disorder: Status: Acute Code(s): F19.90 - Other psychoactive substance use, unspecified, uncomplicated Plan History of depression, chronic severe polysubstance abuse; carries a diagnosis of bipolar disorder;opiate Use Disorder. Hx of C-1, C-2 spinal injury. Hospital course 11/14: Laying in bed. guarded. reports feeling depressed d/t life in general . Pt reports sleeping well last night. denies SI/HI/VH/AH. Kept 1:1 brief; states she doesn't need anything and just wants to sleep . continue current tx plan. 11/15 -Patient reports that she is feeling better than when she came in. Still depressed and would like to get on a medication that could help with depression; discussed options, risks/side effects and patient agreed to try Wellbutrin -discussed history of bipolar diagnosis however verse writer can not solicit actual criteria to meet this diagnosis and it seems that patient just has flare upset only last hours or 1 or 2 days day at most; chronic history of consistent cocaine addiction making it difficult to further assess. -discussed behavioral activation and getting out of her room more, participate in the milieu to which she agreed -signed cv 11/17: no changes 11/19: Fatigue, constipation, dsyphoria, feeling weak, anergic. Team looking at rehab options to help pt regain strength Encouraged milieu, ambulation Dulcolax prn 11/20: Depakote, 125 mg bid. Target sx-anxiety 11/22: Continue plan/regime 11/23: Encourage milieu groups. 11/25 Decrease Depakote to 125 mg HS Decrease Seroquel to 200 mg HS Plan: CV Start Wellbutrin XL 150 mg Collateral Contact Re-establish medicine regime Encourage full milieu Discharge planning Reason for continued inpatient stay Substantial Risk for: rapid decompensation Time Spent With Patient Time: Total time managing care of this patient today ____ minutes.
[2024-11-25 18:56] VITALS: BP 110/53
[2024-11-25] MEDS: cloNIDine HCL 0.1 MG TABLET PO (18:56)
[2024-11-25 19:37] VITALS: BP 110/53; PULSE 80; RESP 15; TEMP 36.8; O2SAT 97
[2024-11-25] MEDS: traZODone HCL 50 MG TABLET PO (20:35)
[2024-11-25] MEDS: QUEtiapine Fumarate 200 MG TABLET PO (20:35)
[2024-11-25] MEDS: OLANZapine 10 MG TABLET PO (20:35)
[2024-11-26 00:15] VITALS: BP 91/53
[2024-11-26] MEDS: methADONE HCl 20 MG/2 ML ORAL.CONC 85 MG PO (07:46)
[2024-11-26 08:00] VITALS: BP 108/54; PULSE 64; RESP 16; TEMP 36.4; O2SAT 96
[2024-11-26] MEDS: Gabapentin 400 MG CAPSULE 800 MG PO ×4 (09:04→20:45)
[2024-11-26] MEDS: Docusate Sodium 100 MG CAPSULE PO ×2 (09:05→20:48)
[2024-11-26] MEDS: buPROPion HCl XL 150 MG TAB.ER.24H PO (09:06)
[2024-11-26 09:29] VITALS: BP 108/59
[2024-11-26] MEDS: cloNIDine HCL 0.1 MG TABLET PO ×2 (09:29→20:49)
[2024-11-26] MEDS: Cyclobenzaprine HCl 10 MG TABLET PO ×3 (09:31→20:48)
--- NOTE | 2024-11-26 09:52 | HO.PSYCHPN ---
Subjective Subjective Date of Service: 11/26/24 Reason For Visit: Bipolar Interim History: met with patient; discussed with team; reviewed chart pt says she's still depressed; over the weekend talking about killing herself, but today that has cleared up and she says she feels ok about discharging this Monday; SI seems to be situational, when she starts thinking about the unknown of aftercare. Pt says she has chronic SI and that SI will never be over...it's always there.. however it seems to have returned to baseline. Due to ongoing depression she agrees to increase Wellbutrin Mental Status Exam Mental Status Exam Narrative: Pt is alert and oriented; behavior is cooperative, friendly and calm; patient is not in distress; dressed in casual attire with unkempt hair but adequate hygiene; mood is described as depressed and affect congruent; eye contact appropriate; Speech is normal rate, volume and prosody and not pressured; no psychomotor agitation/retardation present; thought process is organized and goal directed; Thought content is on tx; otherwise pertinent to relevant topics and without any delusional content, paranoid ideations or grandiosity; intermittent SI; no HI; no avh; no evidence of perceptual disturbance. Patients insight and judgment appear intact. Diagnostics Vital Signs (24Hr): Vital Signs - 24 hr 11/25/24 18:56 11/25/24 19:37 11/26/24 00:15 Temperature 98.2 F Pulse Rate 80 Respiratory Rate 15 Blood Pressure 110/53 L 110/53 L 91/53 L Pulse Oximetry 97 11/26/24 09:29 Temperature Pulse Rate Respiratory Rate Blood Pressure 108/59 L Pulse Oximetry Labs 11/13/24 08:06 Medications Medications Current Medications Acetaminophen (Acetaminophen 325 Mg Tablet) 650 mg PO Q6H PRN PRN Reason: pain 1-10 Last Admin: 11/23/24 09:10 Dose: 650 mg Al Hydroxide/Mg Hydroxide (Magnesium Hydrox/Alum Hydrox 30 Ml Oral.Susp) 30 ml PO Q6H PRN PRN Reason: Heartburn/Nausea Bupropion HCl (Bupropion Hcl Xl 150 Mg Tab.Er.24h) 150 mg PO DAILY [facility] Last Admin: 11/26/24 09:06 Dose: 150 mg Clonidine HCl (Clonidine Hcl 0.1 Mg Tablet) 0.1 mg PO Q4H PRN; Protocol PRN Reason: mod anxiety Last Admin: 11/26/24 09:29 Dose: 0.1 mg Clonidine HCl (Clonidine Hcl 0.1 Mg Tablet) 0.1 mg PO BEDTIME [facility]; Protocol Last Admin: 11/26/24 00:15 Dose: Not Given Cyclobenzaprine HCl (Cyclobenzaprine Hcl 10 Mg Tablet) 10 mg PO TID PRN PRN Reason: Muscle Spasm Last Admin: 11/26/24 09:31 Dose: 10 mg Divalproex Sodium (Divalproex Sodium Sprinkles 125 Mg ) 125 mg PO BEDTIME [facility] [place] Last Admin: 11/25/24 20:36 Dose: 125 mg Docusate Sodium (Docusate Sodium 100 Mg Capsule) 100 mg PO BID [facility] Last Admin: 11/26/24 09:05 Dose: 100 mg Gabapentin (Gabapentin 400 Mg Capsule) 800 mg PO QID [facility] [place] Last Admin: 11/26/24 09:04 Dose: 800 mg Hydrocortisone (Hydrocortisone 1 % Cream 28.35 Gm Tube) 1 appl TOPICAL BID PRN; Protocol PRN Reason: bed bug bites Hydroxyzine HCl (Hydroxyzine Hcl 25 Mg Tablet) 25 mg PO Q6H PRN PRN Reason: Anxiety,mild Last Admin: 11/24/24 13:43 Dose: 25 mg Magnesium Hydroxide (Milk Of Magnesia 30 Ml Oral.Susp) 30 ml PO DAILY PRN PRN Reason: Constipation Methadone HCl (Methadone Hcl 20 Mg/2 Ml Oral.Conc) 85 mg PO DAILY@0800 [facility] [place] Last Admin: 11/26/24 07:46 Dose: 85 mg Naloxone HCl (Naloxone Hcl Nasal 4 Mg [place]) 4 mg NOSTRILALT ONCE PRN PRN Reason: opiate od Nicotine Polacrilex (Nicotine Polacrilex 2 Mg Gum) 4 mg BUCCAL Q2H PRN PRN Reason: Nicotine Cravings Last Admin: 11/23/24 20:12 Dose: 4 mg Olanzapine (Olanzapine 5 Mg Tablet) 5 mg PO TID PRN PRN Reason: agitation Last Admin: 11/21/24 18:06 Dose: 5 mg Olanzapine (Olanzapine 10 Mg Tablet) 10 mg PO BEDTIME [facility] Last Admin: 11/25/24 20:35 Dose: 10 mg Polyethylene Glycol (Polyethylene Glycol 3350 17 Gm Powd.Pack) 17 gm PO DAILY [facility] Last Admin: 11/26/24 09:09 Dose: Not Given Quetiapine Fumarate (Quetiapine Fumarate 50 Mg Tablet) 50 mg PO TID PRN PRN Reason: anxiety, agitation Last Admin: 11/24/24 09:08 Dose: 50 mg Quetiapine Fumarate (Quetiapine Fumarate 200 Mg Tablet) 200 mg PO BEDTIME [facility] Last Admin: 11/25/24 20:35 Dose: 200 mg Trazodone HCl (Trazodone Hcl 50 Mg Tablet) 50 mg PO BEDTIME MRX1 PRN PRN Reason: Insomnia Last Admin: 11/25/24 20:35 Dose: 50 mg Allergies Allergies Allergy/AdvReac Type Severity Reaction Status Date / Time codeine Allergy unknown Verified 11/12/24 16:59 Assessment & Plan Assessment & Plan (1) Bipolar disorder: Status: Acute Code(s): F31.9 - Bipolar disorder, unspecified (2) Opioid use disorder: Status: Acute Code(s): F11.90 - Opioid use, unspecified, uncomplicated (3) Polysubstance use disorder: Status: Acute Code(s): F19.90 - Other psychoactive substance use, unspecified, uncomplicated Plan History of depression, chronic severe polysubstance abuse; carries a diagnosis of bipolar disorder;opiate Use Disorder. Hx of C-1, C-2 spinal injury. Hospital course 11/14: Laying in bed. guarded. reports feeling depressed d/t life in general . Pt reports sleeping well last night. denies SI/HI/VH/AH. Kept 1:1 brief; states she doesn't need anything and just wants to sleep . continue current tx plan. 11/15 -Patient reports that she is feeling better than when she came in. Still depressed and would like to get on a medication that could help with depression; discussed options, risks/side effects and patient agreed to try Wellbutrin -discussed history of bipolar diagnosis however press writer can not solicit actual criteria to meet this diagnosis and it seems that patient just has flare upset only last hours or 1 or 2 days day at most; chronic history of consistent cocaine addiction making it difficult to further assess. -discussed behavioral activation and getting out of her room more, participate in the milieu to which she agreed -signed cv 11/17: no changes 11/19: Fatigue, constipation, dsyphoria, feeling weak, anergic. Team looking at rehab options to help pt regain strength Encouraged milieu, ambulation Dulcolax prn 11/20: Depakote, 125 mg bid. Target sx-anxiety 11/22: Continue plan/regime 11/23: Encourage milieu groups. 11/25 Decrease Depakote to 125 mg HS Decrease Seroquel to 200 mg HS 11/26 pt says she's still depressed; over the weekend talking about killing herself, but today that has cleared up and she says she feels ok about discharging this Monday; SI seems to be situational, when she starts thinking about the unknown of aftercare. Pt says she has chronic SI and that SI will never be over...it's always there.. however it seems to have returned to baseline. Due to ongoing depression she agrees to increase Wellbutrin Plan: CV Increasing to Wellbutrin XL 300 mg Collateral Contact Re-establish medicine regime Encourage full milieu Discharge planning Patient educated on: diagnosis, medication risk/benefits and therapeutic strategies Informed Consent: understands Reason for continued inpatient stay Substantial Risk for: stable for discharge Time Spent With Patient Time: Total time managing care of this patient today ____ minutes.
[2024-11-26] MEDS: QUEtiapine Fumarate 50 MG TABLET PO (15:56)
[2024-11-26 20:00] VITALS: BP 97/57; PULSE 71; RESP 17; TEMP 36.7; O2SAT 97
[2024-11-26] MEDS: QUEtiapine Fumarate 200 MG TABLET PO (20:45)
[2024-11-26] MEDS: Divalproex Sodium Sprinkles 125 MG CAP.DR.SPR PO (20:45)
[2024-11-26] MEDS: OLANZapine 10 MG TABLET PO (20:48)
[2024-11-26 20:49] VITALS: BP 98/60
[2024-11-26] MEDS: traZODone HCL 50 MG TABLET PO (20:49)
[2024-11-26] MEDS: hydrOXYzine HCL 25 MG TABLET PO (21:01)
[2024-11-27 08:00] VITALS: BP 93/52; PULSE 59; TEMP 36.8; O2SAT 96
[2024-11-27] MEDS: methADONE HCl 20 MG/2 ML ORAL.CONC 85 MG PO (08:11)
[2024-11-27] MEDS: buPROPion HCl XL 300 MG TAB.ER.24H PO (08:39)
[2024-11-27] MEDS: Gabapentin 400 MG CAPSULE 800 MG PO ×4 (08:39→20:47)
[2024-11-27] MEDS: Cyclobenzaprine HCl 10 MG TABLET PO ×2 (08:49→21:27)
[2024-11-27] MEDS: Docusate Sodium 100 MG CAPSULE PO ×2 (08:49→20:46)
[2024-11-27] MEDS: QUEtiapine Fumarate 50 MG TABLET PO (12:34)
--- NOTE | 2024-11-27 13:10 | HO.PSYCHPN ---
Subjective Subjective Date of Service: 11/27/24 Reason For Visit: Bipolar Subjective Notes: Conditional Voluntary Healthcare Proxy: No Guardianship: No Medical Problems Affecting Mental Status: No Interim History: Hannah states she has been attempting to walk with the walker, I prefer my cane at home Reports no falls, states physical therapy, has been working me really hard today. Pt discussed discharge and return to [facility]. She has been discussing this with her friend and corporate general manager of the house, Vijaya, and discussed her frame of mind recently, I know I need to move forward, but I have been in this relationship for so long that it is hard to just drop this. I feel responsible for him. Medication Compliance: Yes Side effects from medications: No Attending Groups: Intermittent Review of Systems Acute medical concerns: No Review of Systems Review of Systems reports fatigue after physical therapy instructional meeting today. Mental Status Exam Mental Status Exam Patient Appearance: Fatigued Patient Orientation: Person, Place, Time and Situation Level of Consciousness: Alert Patient Behavior: Appropriate, Talkative, Cooperative, Passive, Anxious, Fearful, Fatigued, Distractible, Isolative and Good Eye Contact Mood Description: Depressed Affect Description: Flat Patient Cognition Impaired: Yes Ability to Follow Directions: Good Speech Pattern: Spontaneous Speech and Long Pauses Memory Description: Remote Impaired Hallucinations: None Delusions: Not Present Thought Process: Rumination and Slowed Thinking Thought Content: positive for Sandy, positive for Circumstantial, positive for Perseveration and positive for Suicidal Ideation ( no, I know I need to move on. ) Depressive Symptoms: Sleeping More Than Usual, Feelings of Worthlessness, Unhappiness, Increased Fatigue, Thoughts of /Suicide (denies), Loss of Energy and Difficulty Concentrating Judgement: Fair Diagnostics Vital Signs (24Hr): Vital Signs - 24 hr 11/26/24 20:00 11/26/24 20:49 11/27/24 08:00 Temperature 98.0 F 98.2 F Pulse Rate 71 59 Respiratory Rate 17 Blood Pressure 97/57 L 98/60 93/52 L Pulse Oximetry 97 96 Oxygen Delivery Method Room Air Room Air Labs 11/13/24 08:06 Medications Medications Current Medications Acetaminophen (Acetaminophen 325 Mg Tablet) 650 mg PO Q6H PRN PRN Reason: pain 1-10 Last Admin: 11/23/24 09:10 Dose: 650 mg Al Hydroxide/Mg Hydroxide (Magnesium Hydrox/Alum Hydrox 30 Ml Oral.Susp) 30 ml PO Q6H PRN PRN Reason: Heartburn/Nausea Bupropion HCl (Bupropion Hcl Xl 300 Mg Tab.Er.24h) 300 mg PO DAILY [facility] Last Admin: 11/27/24 08:39 Dose: 300 mg Clonidine HCl (Clonidine Hcl 0.1 Mg Tablet) 0.1 mg PO Q4H PRN; Protocol PRN Reason: mod anxiety Last Admin: 11/26/24 09:29 Dose: 0.1 mg Clonidine HCl (Clonidine Hcl 0.1 Mg Tablet) 0.1 mg PO BEDTIME [facility]; Protocol Last Admin: 11/26/24 20:49 Dose: 0.1 mg Cyclobenzaprine HCl (Cyclobenzaprine Hcl 10 Mg Tablet) 10 mg PO TID PRN PRN Reason: Muscle Spasm Last Admin: 11/27/24 08:49 Dose: 10 mg Divalproex Sodium (Divalproex Sodium Sprinkles 125 Mg Cap.Spr) 125 mg PO BEDTIME [facility] Last Admin: 11/26/24 20:45 Dose: 125 mg Docusate Sodium (Docusate Sodium 100 Mg Capsule) 100 mg PO BID [facility] Last Admin: 11/27/24 08:49 Dose: 100 mg Gabapentin (Gabapentin 400 Mg Capsule) 800 mg PO QID [facility] Last Admin: 11/27/24 12:27 Dose: 800 mg Hydrocortisone (Hydrocortisone 1 % Cream 28.35 Gm Tube) 1 appl TOPICAL BID PRN; Protocol PRN Reason: bed bug bites Hydroxyzine HCl (Hydroxyzine Hcl 25 Mg Tablet) 25 mg PO Q6H PRN PRN Reason: Anxiety,mild Last Admin: 11/26/24 21:01 Dose: 25 mg Magnesium Hydroxide (Milk Of Magnesia 30 Ml Oral.Susp) 30 ml PO DAILY PRN PRN Reason: Constipation Methadone HCl (Methadone Hcl 20 Mg/2 Ml Oral.Conc) 85 mg PO DAILY@0800 [facility] Last Admin: 11/27/24 08:11 Dose: 85 mg Naloxone HCl (Naloxone Hcl Nasal 4 Mg [place]) 4 mg NOSTRILALT ONCE PRN PRN Reason: opiate od Nicotine Polacrilex (Nicotine Polacrilex 2 Mg Gum) 4 mg BUCCAL Q2H PRN PRN Reason: Nicotine Cravings Last Admin: 11/23/24 20:12 Dose: 4 mg Olanzapine (Olanzapine 5 Mg Tablet) 5 mg PO TID PRN PRN Reason: agitation Last Admin: 11/21/24 18:06 Dose: 5 mg Olanzapine (Olanzapine 10 Mg Tablet) 10 mg PO BEDTIME [facility] Last Admin: 11/26/24 20:48 Dose: 10 mg Polyethylene Glycol (Polyethylene Glycol 3350 17 Gm Powd.Pack) 17 gm PO DAILY [facility] Last Admin: 11/27/24 08:48 Dose: Not Given Quetiapine Fumarate (Quetiapine Fumarate 50 Mg Tablet) 50 mg PO TID PRN PRN Reason: anxiety, agitation Last Admin: 11/27/24 12:34 Dose: 50 mg Quetiapine Fumarate (Quetiapine Fumarate 200 Mg Tablet) 200 mg PO BEDTIME [facility] Last Admin: 11/26/24 20:45 Dose: 200 mg Trazodone HCl (Trazodone Hcl 50 Mg Tablet) 50 mg PO BEDTIME MRX1 PRN PRN Reason: Insomnia Last Admin: 11/26/24 20:49 Dose: 50 mg Allergies Allergies Allergy/AdvReac Type Severity Reaction Status Date / Time codeine Allergy unknown Verified 11/12/24 16:59 Assessment & Plan Assessment & Plan (1) Bipolar disorder: Status: Acute Code(s): F31.9 - Bipolar disorder, unspecified (2) Opioid use disorder: Status: Acute Code(s): F11.90 - Opioid use, unspecified, uncomplicated (3) Polysubstance use disorder: Status: Acute Code(s): F19.90 - Other psychoactive substance use, unspecified, uncomplicated Plan History of depression, chronic severe polysubstance abuse; carries a diagnosis of bipolar disorder;opiate Use Disorder. Hx of C-1, C-2 spinal injury. Hospital course 11/14: Laying in bed. guarded. reports feeling depressed d/t life in general . Pt reports sleeping well last night. denies SI/HI/VH/AH. Kept 1:1 brief; states she doesn't need anything and just wants to sleep . continue current tx plan. 11/15 -Patient reports that she is feeling better than when she came in. Still depressed and would like to get on a medication that could help with depression; discussed options, risks/side effects and patient agreed to try Wellbutrin -discussed history of bipolar diagnosis however gag writer can not solicit actual criteria to meet this diagnosis and it seems that patient just has flare upset only last hours or 1 or 2 days day at most; chronic history of consistent cocaine addiction making it difficult to further assess. -discussed behavioral activation and getting out of her room more, participate in the milieu to which she agreed -signed cv 11/17: no changes 11/19: Fatigue, constipation, dsyphoria, feeling weak, anergic. Team looking at rehab options to help pt regain strength Encouraged milieu, ambulation Dulcolax prn 11/20: Depakote, 125 mg bid. Target sx-anxiety 11/22: Continue plan/regime 11/23: Encourage milieu groups. 11/25 Decrease Depakote to 125 mg HS Decrease Seroquel to 200 mg HS 11/26 pt says she's still depressed; over the weekend talking about killing herself, but today that has cleared up and she says she feels ok about discharging this Monday; SI seems to be situational, when she starts thinking about the unknown of aftercare. Pt says she has chronic SI and that SI will never be over...it's always there.. however it seems to have returned to baseline. Due to ongoing depression she agrees to increase Wellbutrin 11/27 Continue tx Plan: CV Increasing to Wellbutrin XL 300 mg Collateral Contact Re-establish medicine regime Encourage full milieu Discharge planning Reason for continued inpatient stay Substantial Risk for: rapid decompensation Time Spent With Patient Time: Total time managing care of this patient today ____ minutes.
[2024-11-27] MEDS: OLANZapine 2.5 MG TABLET PO (16:06)
[2024-11-27 20:00] VITALS: BP 101/55; PULSE 65; TEMP 36.6; O2SAT 98
[2024-11-27 20:45] VITALS: BP 114/55
[2024-11-27] MEDS: cloNIDine HCL 0.1 MG TABLET PO (20:45)
[2024-11-27] MEDS: traZODone HCL 50 MG TABLET PO (20:47)
[2024-11-27] MEDS: Divalproex Sodium Sprinkles 125 MG CAP.DR.SPR PO (20:47)
[2024-11-27] MEDS: OLANZapine 10 MG TABLET PO (20:48)
[2024-11-27] MEDS: QUEtiapine Fumarate 200 MG TABLET PO (20:49)
[2024-11-27] MEDS: Acetaminophen 325 MG TABLET 650 MG PO (21:27)
[2024-11-28] MEDS: hydrOXYzine HCL 25 MG TABLET PO (04:17)
[2024-11-28] MEDS: Cyclobenzaprine HCl 10 MG TABLET PO ×2 (04:17→09:39)
[2024-11-28] MEDS: Acetaminophen 325 MG TABLET 650 MG PO (04:18)
[2024-11-28 08:00] VITALS: BP 91/55; PULSE 59; TEMP 36.9; O2SAT 96
[2024-11-28] MEDS: methADONE HCl 20 MG/2 ML ORAL.CONC 85 MG PO (08:14)
[2024-11-28] MEDS: Gabapentin 400 MG CAPSULE 800 MG PO (09:38)
[2024-11-28] MEDS: buPROPion HCl XL 300 MG TAB.ER.24H PO (09:38)
[2024-11-28] MEDS: Docusate Sodium 100 MG CAPSULE PO (09:38)
[2024-11-28] MEDS: QUEtiapine Fumarate 50 MG TABLET PO (09:49)
[2024-11-28] MEDS: OLANZapine 5 MG TABLET PO (09:49)
--- NOTE | 2024-11-28 11:39 | PM.PSYDC ---
DS: Providers Provider Date of Service: 11/28/24 Date of admission: 11/12/24 21:02 Date of discharge: 11/28/24 Primary care physician: Nonstaff Physician Admitting clinician: Bobbi Mahoney Attending physician on admission: Andres Khan Consults: 11/12/24 16:59 Consult to Hospitalist Routine Comment: Consulting [place] [facility] [place] [facility] Reason For Exam: admission physical 11/12/24 22:14 Addiction Medicine Routine Consulting Provider: Addiction Covering Reason for consultation: Long history of substance abuse Attending physician on discharge: Andres Khan Discharging clinician: Bobbi Mahoney DS: Diagnosis Discharge Diagnosis (1) Bipolar disorder: Status: Acute (2) Opioid use disorder: Status: Acute (3) Polysubstance use disorder: Status: Acute DS: Medications Discharge Medications Home Medications: Previous Rx's ?Medication ?Instructions ?Recorded acetaminophen 325 mg tablet 650 mg (2 x 325 mg) PO Q6H PRN 11/28/24 pain 1-10 #0 tabs bupropion HCl 300 mg 24 hr tablet, 300 mg PO DAILY #30 tabs 11/28/24 extended release clonidine HCl 0.1 mg tablet 0.1 mg PO BEDTIME #7 tabs 11/28/24 clonidine HCl 0.1 mg tablet 0.1 mg PO Q4H PRN mod anxiety #0 11/28/24 tabs cyclobenzaprine 10 mg tablet 10 mg PO TID PRN Muscle Spasm #21 11/28/24 tabs docusate sodium 100 mg capsule 100 mg PO BID #60 caps 11/28/24 gabapentin 800 mg tablet 800 mg PO QID #28 tabs 11/28/24 hydrocortisone 1 % topical cream 1 appl topical BID PRN bed bug 11/28/24 bites #30 applicators methadone 10 mg/mL oral 85 mg (8.5 mL) PO DAILY@0800 #0 mL 11/28/24 concentrate (Methadose) naloxone 4 mg/actuation nasal 4 mg intranasal (ALT) ONCE PRN 11/28/24 spray (Narcan) opiate od #2 ea nicotine (polacrilex) 2 mg gum 4 mg buccal Q2H PRN Nicotine 11/28/24 Cravings #110 ea olanzapine 10 mg tablet 10 mg PO BEDTIME #14 tabs 02/20/25 polyethylene glycol 3350 17 gram 17 g PO DAILY #30 ea 11/28/24 oral powder packet quetiapine 200 mg tablet 200 mg PO BEDTIME #14 tabs 11/28/24 trazodone 50 mg tablet 50 mg PO BEDTIME MRX1 PRN Insomnia 11/28/24 #14 tabs walker (Ultra-Light Rollator misc) #1 ea 11/28/24 Mental Status Exam Mental Status Exam Patient Appearance: Fatigued Patient Orientation: Person, Place, Time and Situation Level of Consciousness: Alert Patient Behavior: Appropriate, Talkative, Cooperative, Passive, Anxious, Fearful, Fatigued, Distractible, Isolative and Good Eye Contact Mood Description: Depressed Affect Description: Flat Patient Cognition Impaired: Yes Ability to Follow Directions: Good Speech Pattern: Spontaneous Speech and Long Pauses Memory Description: Remote Impaired Hallucinations: None Delusions: Not Present Thought Process: Rumination and Slowed Thinking Thought Content: positive for [place], positive for Circumstantial, positive for Perseveration and positive for Suicidal Ideation ( no, I know I need to move on. Denies SI) Depressive Symptoms: Sleeping More Than Usual, Feelings of Worthlessness, Unhappiness, Increased Fatigue, Thoughts of /Suicide (denies), Loss of Energy and Difficulty Concentrating Judgement: Fair DS: Summary Hospital Course Hospital Course: Admission to adult psychiatry for exacerbation of bipolar disorder, polysubstance use disorder and loss of her relationship with an extended period of medical and psychiatric instability prior to admission. Pt endures director long term care homelessness as well. She had been living at [facility] however left to be with her partner, also homeless and my drug padmini . Medications were evaluated and titrated. 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 Pt was offered full milieu therapy throughout her admission. Pt will return to [facility]. She has decided to terminate her relationship as it has promoted breaks in sobriety. Status at Discharge Functional status at discharge: independent ambulation Overall status at discharge: patient is progressing back to baseline Time Spent with Patient Time attestation: Total time managing care of this patient today ____ minutes. Time spent: Less than 30 minutes Discharge Plan Discharge Anticipated Discharge Date/Time: 11/28/24 12:00 Patient Disposition: Xfer Other Discharge Diagnosis: Bipolar Disorder Opiate Use Disorder Polysubstance Use Disorder Referrals: [facility] Psychiatry/Therapy [Other] - 3-5 Days (This is a same day walk-in intake appointment for psychiatry and therapy. Please bring your discharge paperwork (in green folder) this will give you priority. JAIMIE recommends going within the week to secure appts. JAIMIE is recommending case management which you can ask for during the initial intake appointment) Perinatal Breastfeeding Assistant [facility] [Other] - 3-5 Days (Ghazal is your [facility] Perinatal Breastfeeding Assistant and can support you with services in the community.) Discharge Medications: New cyclobenzaprine 10 mg Tablet 10 mg PO TID PRN (Reason: Muscle Spasm) Qty: 21 0RF clonidine HCl 0.1 mg Tablet 0.1 mg PO Q4H PRN (Reason: mod anxiety) Qty: 0 0RF Protocol: Hold for SBP< HOLD for SBP < : 90 clonidine HCl 0.1 mg Tablet 0.1 mg PO BEDTIME Qty: 7 0RF Protocol: Hold for SBP< HOLD for SBP < : 90 acetaminophen 325 mg Tablet 650 mg PO Q6H PRN (Reason: pain 1-10) Qty: 0 0RF nicotine (polacrilex) 2 mg Gum 4 mg buccal Q2H PRN (Reason: Nicotine Cravings) Qty: 110 0RF olanzapine 10 mg Tablet 10 mg PO BEDTIME Qty: 14 0RF bupropion HCl 300 mg Tablet Extended Release 24 Hr 300 mg PO DAILY Qty: 30 0RF naloxone [Narcan] 4 mg/actuation [place],Non-Aerosol 4 mg intranasal (ALT) ONCE PRN (Reason: opiate od) Qty: 2 0RF trazodone 50 mg Tablet 50 mg PO BEDTIME MRX1 PRN (Reason: Insomnia) Qty: 14 0RF polyethylene glycol 3350 17 gram Powder In Packet 17 g PO DAILY Qty: 30 0RF quetiapine 200 mg Tablet 200 mg PO BEDTIME Qty: 14 0RF hydrocortisone 1 % Cream 1 appl topical BID PRN (Reason: bed bug bites) Qty: 30 0RF Protocol: Apply to: Apply to: affected areas docusate sodium 100 mg Capsule 100 mg PO BID Qty: 60 0RF gabapentin 800 mg tablet 800 mg PO QID Qty: 28 0RF methadone [Methadose] 10 mg/mL Concentrate 85 mg PO DAILY@0800 Qty: 0 0RF Rx Instructions: Partial Fill upon patient request. (DME) Ultra-Light Rollator Misc See Rx Instructions .Route Qty: 1 0RF Rx Instructions: As directed Discontinued cyclobenzaprine [Flexeril] 10 mg Tablet 10 mg PO TID PRN (Reason: Muscle Spasm) clonidine HCl 0.1 mg Tablet 0.3 mg PO BEDTIME PRN (Reason: Anxiety) doxycycline hyclate 100 mg Capsule 100 mg PO BID methadone 10 mg/5 mL Solution 85 mg PO DAILY quetiapine 200 mg Tablet 200 mg PO BID olanzapine [Zyprexa] 10 mg Tablet 10 mg PO DAILY cephalexin HCl 500 mg Tablet 500 mg PO BID gabapentin 800 mg Tablet 800 mg QID Discharge Orders: Discharge Order (Routine); Ordered 11/28/24 Ordered By: Bobbi Mahoney Diet: Advance to usual diet Activity on Discharge: As tolerated Stand Alone Forms: Patient Portal Discharge page, Community Support Print Language: [place] Citizen Care Plan Goals: Mood and Behavioral Stabilization Abstinence from Substances Health Concerns: Mood and Behavioral Stabilization Abstinence from Substances Plan of Treatment: Attend follow up appointments with your provider team Take medications as directed Physical Therapy recommends you use a walker, which is prescribed, not a cane. Assessment: Lorie SI,HI,AH,VH No sx of acute psychosis, demetri Discharge Date/Time: 11/28/24 12:30
== END 2024-11-28 12:30 | disposition other institution (70) | DRG 885 ==
PROVIDERS: Hospitalist; Psychiatry & Neurology Psychiatry; Admitting Provider Psychiatry & Neurology Psychiatry; Visit Provider Clinical Nurse Specialist Psychiatric/Mental Health, Adult
DX: F31.9 Bipolar disorder, unspecified (principal); F11.20 Opioid dependence, uncomplicated; R45.851 Suicidal ideations; F14.20 Cocaine dependence, uncomplicated; F17.210 Nicotine dependence, cigarettes, uncomplicated; F19.90 Other psychoactive substance use, unspecified, uncomplicated; Z71.6 Tobacco abuse counseling; Z23 Encounter for immunization; Z79.899 Other long term (current) drug therapy
CPT/HCPCS: 36415; 80048; 80061; 83036; 84443; 90656; 97112; 97116; 97162; 97530; S9485

== ENCOUNTER → 2024-11-12 21:02 | Outpatient (BNV) | payer MEDICARE, SELFPAY | PROVIDERS: Admitting Provider Psychiatry & Neurology Psychiatry; Visit Provider Clinical Nurse Specialist Psychiatric/Mental Health, Adult | DX: F31.4 Bipolar disorder, current episode depressed, severe, without psychotic features (principal); F11.90 Opioid use, unspecified, uncomplicated; F19.90 Other psychoactive substance use, unspecified, uncomplicated | CPT/HCPCS: 90792; 99231; 99232 ==

== ENCOUNTER → 2024-11-12 21:02 | Outpatient (BNV) | payer MEDICARE, SELFPAY | PROVIDERS: Admitting Provider Psychiatry & Neurology Psychiatry; Visit Provider Hospitalist | DX: F11.90 Opioid use, unspecified, uncomplicated (principal) | CPT/HCPCS: 99222 ==